=== PATIENT | female | born 1965 | race Caucasian/White ===

== ENCOUNTER 2020-02-17 16:47 | Inpatient (IN) | payer OTHER ==
--- NOTE | 2020-02-17 17:02 | PDOC ---
History of Present Illness - General Chief Complaint: Alcohol intoxication Stated Complaint: RT ARM INFECTION Time Seen by Provider: 02/17/20 16:58 History Source: Patient Exam Limitations: Language Barrier (malaysian speaking) - History of Present Illness Initial Comments: 02/17/20 17:01 HPI: This is a 54 y/o malaysian speaking female coming in from [facility] due to bilateral upper extremity cellulitis. She has a PMH of HIV, IVDA last use of heroin and cocaine was this morning. She reports that her arms have been swollen for the last 3 months. Switched from left arm to right arm as injection site. She is complaining of pain, swelling, and reports that she had purulent drainage from right arm. Denies any systemic symptoms. Denies fever/chills, chest pain, SOB, headache. ROS: GENERAL/CONSTITUTIONAL: No fever/chills. No weakness. CARDIOVASCULAR: No chest pain or shortness of breath. RESPIRATORY: No cough, wheezing, or hemoptysis. GASTROINTESTINAL: No nausea, vomiting, diarrhea or constipation. GENITOURINARY: No dysuria, frequency, or change in urination. MUSCULOSKELETAL: Bilateral forearm edema and pain SKIN: Bilateral forearm edema NEUROLOGIC: No headache, vertigo, loss of consciousness, or change in strength/sensation. ENDOCRINE: No increased thirst. No abnormal weight change. HEMATOLOGIC/LYMPHATIC: No anemia, easy bleeding, or history of blood clots. ALLERGIC/IMMUNOLOGIC: No hives or skin allergy. PMH: HIV, IVDA Social Hx: IVDA, cocaine use, heroin Meds: Denied Allergies: KNDA PE: GENERAL: Awake, alert. Visibly intoxicated. Falling asleep while talking. HEAD: No signs of trauma EYES: PERRLA, EOMI. Pupils constricted bilaterally. NECK: Normal ROM, supple. Track ness on right EJ LUNGS: Breath sounds equal, clear to auscultation bilaterally. HEART: Regular rate and rhythm. Systolic ejection murmur. ABDOMEN: Soft, nontender, normoactive bowel sounds. No guarding, no rebound. No masses EXTREMITIES: Bilateral forearm and hand edema R>L. Track ness on both arms and hands. Raised lesions. No drainage. NEUROLOGICAL: Cranial nerves II through XII grossly intact. Normal speech, normal gait SKIN: Warm, Dry, normal turgor, no rashes or lesions noted. MDM: 02/17/20 18:37 This is a 54 y/o malaysian speaking female coming in from [facility] due to bilateral upper extremity cellulitis. - Bilateral edema, warmth in upper forearms. R>L - Afebrile, no other systemic symptoms - Systolic murmur on exam. Patient unsure if it was present before. - Will admit for IV abx and echocardiogram due to new murmur and IVDA - Gave 1000mg IV Vanc in ED 02/17/20 19:10 - No leukocytosis - Pt refusing EKG - CXR clear -- Accepted by andres 02/17/20 21:50 Past History - Medical History Allergies/Adverse Reactions: Allergies Allergy/AdvReac Type Severity Reaction Status Date / Time No Known Allergies Allergy Verified 02/17/20 18:33 ED Treatment Course - LABORATORY CBC & Chemistry Diagram: 02/17/20 17:40 02/17/20 17:40 Discharge - Discharge Information Problems reviewed: Yes Clinical Impression/Diagnosis: Intravenous drug abuse Cellulitis Qualifiers: Site of cellulitis: extremity Site of cellulitis of extremity: upper extremity Laterality: right Qualified Code(s): L03.113 - Cellulitis of right upper limb Condition: Fair - Admission Yes - Follow up/Referral - Patient Discharge Instructions - Post Discharge Activity
--- NOTE | 2020-02-17 17:54 | PDOC ---
Documentation entered by Anitra Erickson SCRIBE, acting as scribe for Francisca Farfan DO. Francisca Farfan DO: This documentation has been prepared by the meghnae, Anitra Erickson SCRIBE, under my direction and personally reviewed by me in its entirety. I confirm that the documentation accurately reflects all work, treatment, procedures, and medical decision making performed by me. Attending Attestation - Resident Resident Name: Karen Braxton - ED Attending Attestation I have performed the following: I have examined & evaluated the patient, The case was reviewed & discussed with the resident, I agree w/resident's findings & plan, Exceptions are as noted - HPI HPI: 02/17/20 17:10 Patient is a 54 year old female with a significant past medical history of alcohol abuse, substance abuse (heroin and cocaine - last use was this morning), HIV, who presents to the ED, from [facility], with bilateral cellulitis in arms x3 months. Patient stated her arms have been swollen for months and that she switches between arm for drug injection sites. Patient endorses: swelling, pain, and purulent discharge from right arm. Patient denies: headache, fever, chills, SOB, chest pain, or any other related symptoms. Allergies: NKDA - Physicial Exam PE: 02/17/20 17:51 Gen: awake, speaking in serbian, nad heart: +s1s2 systolic ejection murmur lungs: cta b/l abd: soft, nt/nd +bs ext: track ness to b/l UE, mild warmth, no drainage, no fluctuance, sites where she skin pops, no drainage, no abscess, no crepitus - Medical Decision Making 02/17/20 17:52 a/p: 54yo female with murmur, unsure if new or old and UE cellulitis -bedside ultrasound shows cobblestoning, but no abscess -will need echo -hx of hiv -will send labs, iv abx -admission 02/17/20 19:23 no elevated wbc cxr clear microblog sent to [facility] for admission for iv abx and echo for murmur eval given ivda 02/17/20 20:00 resident discussed the case with [facility] who accepts the patient to service Discharge - Discharge Information Problems reviewed: Yes Clinical Impression/Diagnosis: Intravenous drug abuse Cellulitis Qualifiers: Site of cellulitis: extremity Site of cellulitis of extremity: upper extremity Laterality: right Qualified Code(s): L03.113 - Cellulitis of right upper limb Condition: Fair - Admission Yes - Follow up/Referral - Patient Discharge Instructions - Post Discharge Activity
[2020-02-17] MEDS ORDERED: LACTATED RINGERS SOLUTION 1000 ML INFUS.BAG IV ONE (18:31)
[2020-02-17] MEDS ORDERED: VANCOMYCIN 1 GM in D5W (PRE-DOCKED) 1,000 MG/250 ML IVPB ONE (18:32)
[2020-02-17] MEDS ORDERED: EPINEPHrine/PF 1 MG/1 ML (1:1,000) AMPULE ONE (18:35)
[2020-02-17] MEDS ORDERED: EPINEPHrine 1:10,000 (P-F SYR) 1 MG/10 ML DISP.SYRIN ONE (18:35)
[2020-02-17] MEDS ORDERED: VANCOMYCIN 1 GRAM (PRE-DOCKED) 1,000 MG/250 ML BAG IVPB ONE (18:36)
[2020-02-17 18:59] LABS: BASO % 0.5 % (0-2.0); EOS % 3.1 % (0-4.5); HEMOGLOBIN 10.5 GM/dL (10.7-15.3); LYMPH % 26.8 % (8-40); MCH 27.2 pg (25.7-33.7); MEAN CELL VOLUME 85.2 fl (80-96); MEAN PLT VOLUME 7.1 fl (7.5-11.1); MONO % 8.1 % (3.8-10.2); NEUT % 61.5 % (42.8-82.8); PLATELET COUNT 227 K/MM3 (134-434); RBC 3.87 M/mm3 (3.60-5.2); RDW 14.8 % (11.6-15.6); WHITE BLOOD COUNT 4.1 K/mm3 (4.0-10.0)
[2020-02-17 19:14] LABS: BILIRUBIN,TOTAL 0.2 mg/dL (0.2-1); BLOOD UREA NITROGEN 16.2 mg/dL (7-18); CALCIUM 8.5 mg/dL (8.5-10.1); CREATININE 0.8 mg/dL (0.55-1.3); POTASSIUM 4.3 mmol/L (3.5-5.1); TOT PROT 7.4 g/dl (6.4-8.2)
--- NOTE | 2020-02-17 19:30 | PN ---
Teaching Attending Note Name of Resident: Atif Gonzalez ATTENDING PHYSICIAN STATEMENT I saw and evaluated the patient. I reviewed the resident's note and discussed the case with the resident. I agree with the resident's findings and plan as documented. SUBJECTIVE: Patient is a 54 year old woman with a PMH of Alcohol abuse, Tobacco use, P rediabetes, HTN Asthma, Substance abuse (heroin and cocaine - last use was this morning), IVDA and HIV disease who presents to the ER from [facility] with bilateral cellulitis in the arms for 3 months. Patient stated her arms have been swollen for months and that she switches between arm for drug injection sites. Reports swelling, pain, and purulent discharge from right arm. Patient denies chest pain, shortness of breath, abdominal pain, headache, palpitations, dizziness, fever, chills, nausea, vomiting, diarrhea, constipation, dysuria, frequency, urgency, melena, hematochezia or hematuria. No sick contacts or recent travels. Family history of HTN and heart disease. OBJECTIVE: Somnolent but arousable Vital Signs Period Temp Pulse Resp BP Sys/Herring Pulse Ox Last 24 Hr 97.6 F 57 17 98/44 98 HEENT: No Jaundice, eye redness or discharge, PERRLA, EOMI. Normocephalic, atraumatic. External ears are normal and hearing is grossly intact. No nasal discharge. Neck: Supple, nontender. No palpable adenopathy or thyromegaly. No JVD Chest: Good effort. Clear to auscultation and percussion. Heart: Regular. No S3 or rub; 2/6 LIONEL. Abdomen: Not distended, soft, nontender and no HSM. No rebound or guarding. Normal bowel sounds. Ext: Peripheral pulses intact. No leg edema. Bilateral forearm edema with track ness, areas of hyperpigmentation and sequelae of IVDU; areas of induration and tenderness, but no fluctuance or crepitus. Skin: Warm and dry. No petechiae, rash or ecchymosis. Neuro: Somnolent but arousable; combative. Oriented x3. No tremors or asterexis. CN 2-12 grossly intact. Sensation grossly intact in all four extremities and DTR are symmetric. Psych: Appropriate mood and affect. Good insight. Abnormal Lab Results 02/17/20 02/17/20 17:40 17:40 Hgb 10.5 L MPV 7.1 L Anion Gap 7 L Albumin 3.0 L Current Medications Generic Name Dose Route Start Last Admin Trade Name Freq PRN Reason Stop Dose Admin Acetaminophen 650 mg 02/17/20 21:39 Tylenol - PO Q4H PRN PAIN LEVEL 6-10 Albuterol Sulfate 2 puff 02/17/20 20:44 Ventolin Hfa Inhaler - IH Q4H PRN SHORT OF BREATH/WHEEZING Enoxaparin Sodium 40 mg 02/18/20 10:00 Lovenox - SQ DAILY MILAGROS Vancomycin HCl 1,000 mg/ 250 mls @ 166.667 mls/hr 02/17/20 22:00 Dextrose IVPB Q12H MILAGROS Protocol Piperacillin Sod/Tazobactam 50 mls @ 100 mls/hr 02/17/20 22:00 Sod 3.375 gm/ Dextrose IVPB Q6H MILAGROS Protocol Vancomycin HCl 1,000 mg in 250 mls @ 166.667 mls/hr 02/18/20 06:00 Vancomycin (Pre-Docked) IVPB 02/18/20 07:29 ONCE ONE Protocol Piperacillin Sod/Tazobactam 50 mls @ 100 mls/hr 02/17/20 22:30 02/17/20 22:52 Sod 3.375 gm/ Dextrose IVPB 02/18/20 10:59 100 mls/hr Q6H MILAGROS Administration Protocol Folic Acid 1 mg/ Thiamine HCl 1,000 mls @ 125 mls/hr 02/17/20 22:32 100 mg/ Multivitamins/Minerals IVPB 02/18/20 06:31 10 ml/ Sodium Chloride ONCE ONE Insulin Aspart 1 vial 02/17/20 22:00 02/17/20 22:52 Novolog Vial Sliding Scale - SQ Not Given ACHS MILAGROS Protocol ASSESSMENT AND PLAN: 1. Upper extremity cellulitis/IVDU?Rule out endocarditis - CXR shows with no evidence of acute lung disease. Being treated with IV Vancomycin and Zosyn pending report of blood/pus culture. Will get CT scan of upper extremities to rule out abscess, get ECHO, urine toxicology, CD4 count, viral load and consult ID. Viral testing for COVID-19 ordered and patient placed on airborne, droplet and contact isolation. Patient refused EKG - wants to be fed before permitting anymore tests - we have requested for a sandwich for her. Urinalysis is pending. Will monitor blood glucose and do insulin sliding scale in view of history of prediabetes. Will continue comprehensive care for all of patients comorbid conditions including obtaining information about her HIV care/HAART from her PCP during the day and Albuterol PRN for COPD/Asthma. 2. Polysubstance abuse - Monitor closely for drug withdrawal. Implement [facility] alcohol withdrawal protocol and do neurochecks. Implement seizure, fall and aspiration precautions. Treat with IV Banana bag, thiamine and folic acid. Monitor and replete electrolytes (Ca,Mg,K,P). Counseled patient about abstaining from illicit drugs/alcohol. Will consult internet marketing specialist and refer to alcohol/drug detox upon discharge. 3. Hypoalbuminemia - Possibly due to combined effects of malnutrition and inflammation associated with comorbid conditions. Will ensure adequate dietary protein intake and also consult self propelled dredge operator. Urinalysis pending. 4. Hypertension Will restart suitable outpatient antihypertensive drugs when clinically appropriate. Subsequently, will revise regimen to ensure [id number] excellent BP control. Patient counseled on the injurious effects of uncontrolled hypertension. Nonpharmacologic measures to control hypertension like weight loss, salt restriction and exercise stressed. Importance of adherence to treatment regimen and attainment of normotension emphasized. 5. DVT prophylaxis - Lovenox 40 mg SQ q 24 hours. 6. Advance directives - Full code
[2020-02-17] MEDS ORDERED: ACETAMINOPHEN 325 MG TABLET (FP) PO PRN (21:39)
[2020-02-17] MEDS ORDERED: FOLIC ACID INJECTION - 1 MG, THIAMINE HCL 100 MG, MULTIVIT INJECTION ADULT 10 ML in SOD... IVPB ONE (22:32)
[2020-02-17] MEDS ORDERED: PIPERACILLIN/TAZOB 3.375 GM 3.375 GM/50 ML BAG IVPB ONE (22:41)
[2020-02-17] MEDS: INSULIN SLIDING SCALE (NOVOLOG) 1 VIAL SQ SCH (22:52)
[2020-02-17] MEDS: PIPERACILLIN/TAZOB 3.375 GM 3.375 GM in DEXTROSE 5%-WATER - 50 ML IVPB SCH (22:52)
--- NOTE | 2020-02-18 01:08 | HP ---
CHIEF COMPLAINT: Feeling of unwellness x 3 months PCP:None HISTORY OF PRESENT ILLNESS: Patient is a 54yo female with a PMHx Emphysema, Diabetes mellitus, HIV, HTN now complaining of feeling of unwellness of 3months duration. When asked she stretched out her forearm to exposed b/l forearm swelling. She said it has been progressing with pain scale of 5/10, relieved by a bag of heroin. Denies chest pain, hx of cloting disorder, persistent/recurrent headache, visual or auditory impairment. However there is associated somnolence, yawning, anxiety and agitated but no nausea, vomitting and diarrhea. ER course was notable for: (1)Vancomysin (2)Zosyn (3)IVF: LR Recent Travel:None PAST SURGICAL HISTORY: many years back Social History: Lives alone in the [place]. [email or web address] [employer] [facility] and on full disability Drugs: Cocaine and heroin. Uses up to 10 bags of heroin. Uses in isolated, not in company of friends and does not share needle. Never OD, has narca at home Allergies: No known allergy OBGYN Hx: Not currently sexually active. Para 4. No hx of STI FHx: Heart disease and HTN in parents HOME MEDICATIONS: REVIEW OF SYSTEMS Negative except as above Vital Signs - 24 hr 02/17/20 02/17/20 02/18/20 16:50 21:53 00:46 Temperature 97.6 F Pulse Rate 57 L Pulse Rate [ 61 Right Radial] Respiratory 17 Rate Blood Pressure 98/44 L Blood Pressure 103/64 [Left Arm] O2 Sat by Pulse 98 95 96 Oximetry (%) 02/18/20 01:05 Temperature Pulse Rate Pulse Rate [ Right Radial] Respiratory 17 Rate Blood Pressure Blood Pressure [Left Arm] O2 Sat by Pulse 96 Oximetry (%) PHYSICAL EXAMINATION GENERAL: Awake, somnolence, yawning,anxious and agitated HEAD: Normal with no signs of trauma. EYES: Sclera anicteric, conjunctiva clear. NECK: Normal range of motion, supple without lymphadenopathy, masses. LUNGS: Vesicular breath sounds equal and b/l. No wheezes, and no crackles. No obvious signs of respiratory distress. HEART: S1 and S2 appreciated. Murmur present over tricuspid valvular region. ABDOMEN: Soft, full. Deep palpation deferred, patient became more agitated at this point. UPPER EXTREMITIES: B/L swelling of forearm noticed, hyperpigmented with obvious track ness. Palpation revealed no crepitus, non fluctuant, tenderness rated 5/10. LOWER EXTREMITIES: No pedal edema. NEUROLOGICAL: Somnolence, anxious and agitated. Cranial VII and V-motor intact. Patient non cooperative for the rest of the CN exam PSYCHIATRIC: poor eye contact. SKIN: swelling and tenderness of b/l forearm Laboratory Results - last 24 hr 02/17/20 02/17/20 02/17/20 17:40 17:40 22:50 WBC 4.1 RBC 3.87 Hgb 10.5 L Hct 33.0 MCV 85.2 MCH 27.2 MCHC 32.0 RDW 14.8 Plt Count 227 MPV 7.1 L Absolute Neuts (auto) 2.5 Neutrophils % 61.5 Lymphocytes % 26.8 Monocytes % 8.1 Eosinophils % 3.1 Basophils % 0.5 Nucleated RBC % 0 Sodium 139 Potassium 4.3 Chloride 102 Carbon Dioxide 29 Anion Gap 7 L BUN 16.2 Creatinine 0.8 Est GFR (CKD-EPI)AfAm 96.87 Est GFR (CKD-EPI)NonAf 83.58 POC Glucometer 82 Random Glucose 93 Calcium 8.5 Total Bilirubin 0.2 AST 20 ALT 19 Alkaline Phosphatase 77 Total Protein 7.4 Albumin 3.0 L HIV-1 Antibody HIV Ag/Ab Interpret HIV-2 Antibody HIV 1&2 Ag/Ab, 4th Gen HIV 1&2 Ab Final Interp 02/17/20 22:56 WBC RBC Hgb Hct MCV MCH MCHC RDW Plt Count MPV Absolute Neuts (auto) Neutrophils % Lymphocytes % Monocytes % Eosinophils % Basophils % Nucleated RBC % Sodium Potassium Chloride Carbon Dioxide Anion Gap BUN Creatinine Est GFR (CKD-EPI)AfAm Est GFR (CKD-EPI)NonAf POC Glucometer Random Glucose Calcium Total Bilirubin AST ALT Alkaline Phosphatase Total Protein Albumin HIV-1 Antibody Cancelled HIV Ag/Ab Interpret Cancelled HIV-2 Antibody Cancelled HIV 1&2 Ag/Ab, 4th Gen Cancelled HIV 1&2 Ab Final Interp Cancelled ASSESSMENT/PLAN: Patient is a 54yo female with a PMHx Emphysema, Diabetes mellitus HTN now complaining of feeling of unwellness and b/l forearm swelling of 3months. # BILATERAL FOREARM CELLULITIS: Painful swollen b/l forearm Intravenous drug user with needle tracks Known HIV patient Blood and pus culture pending Tylenol 650mg prn Continue IV Vancomycin and Zosyn. Adjust as necessary based on culture results CT scan of upper extremities to rule out abscess #R/O INFECTIVE ENDOCARDITIS: Painful swollen b/l forearm Intravenous drug user with tracks Immunosuppressed considering HIV status Tricuspid valvular murmur on P/E LOGAN for intracardiac and valvular analysis 2 sample blood culture Continue Vancomysin and Zosyn as stated #HIV: Known HIV patient Anemia Hypoalbuminemia CD4 count and viral load Information on HIV and HAART to be obtained in AM from PCP for optimal treatment Consult ID. Viral testing for COVID-19 ordered Pending covid result, patient to be placed on airborne, droplet and contact isolation. Folic acid 1mg IV #POLY SUBSTANCE ABUSE/DEPENDENCE, COMPLICATED: Cocaine and heroin dependence B/L upper limb cellutis ?New onset tricuspid murmur Urine toxicology Monitot and Rx withdrawal symptoms Albuterol PRN for COPD/Asthma Educate patient on importance of stopping illicit drug use and complication of continue use # ?PREDIABETES: BGM and ISS initiation if clinically required HbA1c and manage appropriately F/U Urinalysis result #FEN: Continue IVF until LOGAN is done Continue to monitor electrolyte and replete prn NPO before LOGAN, then low carbs, low fat, low salt diet #DVT prophylax: Levonox 4omg tid #DISPOSITION: Admit to med surg F/u pending results Call local pharm and PCP for prescribed HAART regimen pt is on Visit type - Emergency Visit Emergency Visit: Yes ED Registration Date: 02/17/20 Care time: The patient presented to the Emergency Department on the above date and was hospitalized for further evaluation of their emergent condition. - New Patient This patient is new to me today: Yes Date on this admission: 02/17/20 - Critical Care Critical Care patient: No ATTENDING PHYSICIAN STATEMENT I saw and evaluated the patient. I reviewed the resident's note and discussed the case with the resident. I agree with the resident's findings and plan as documented. SUBJECTIVE: OBJECTIVE: ASSESSMENT AND PLAN:
[2020-02-18 01:14] VITALS: BMI 26.2
[2020-02-18] MEDS ORDERED: PIPERACILLIN/TAZOBACTAM 3.375 GM VIAL IVPB ONE ×3 (04:27→16:43)
[2020-02-18] MEDS ORDERED: DEXTROSE 5%-WATER - 50 ML IVPB ONE ×3 (04:28→16:43)
[2020-02-18] MEDS: PIPERACILLIN/TAZOB 3.375 GM 3.375 GM in DEXTROSE 5%-WATER - 50 ML IVPB SCH ×5 (04:34→17:13)
[2020-02-18] MEDS ORDERED: VANCOMYCIN 1 GRAM (PRE-DOCKED) 1,000 MG/250 ML BAG IVPB ONE (06:00)
[2020-02-18] MEDS: INSULIN SLIDING SCALE (NOVOLOG) 1 VIAL SQ SCH ×4 (06:57→21:20)
[2020-02-18 08:06] LABS: BASO % 0.6 % (0-2.0); EOS % 2.4 % (0-4.5); HEMATOCRIT 35.1 % (32.4-45.2); HEMOGLOBIN 11.1 GM/dL (10.7-15.3); LYMPH % 24.2 % (8-40); MCH 26.9 pg (25.7-33.7); MCHC 31.8 g/dl (32.0-36.0); MEAN CELL VOLUME 84.5 fl (80-96); MEAN PLT VOLUME 7.3 fl (7.5-11.1); MONO % 7.7 % (3.8-10.2); NEUT % 65.1 % (42.8-82.8); PLATELET COUNT 213 K/MM3 (134-434); RBC 4.15 M/mm3 (3.60-5.2); RDW 14.5 % (11.6-15.6); WHITE BLOOD COUNT 4.3 K/mm3 (4.0-10.0)
--- NOTE | 2020-02-18 08:32 | PN ---
Teaching Attending Note Name of Resident: Shaun Bautista ATTENDING PHYSICIAN STATEMENT I saw and evaluated the patient. I reviewed the resident's note and discussed the case with the resident. I agree with the resident's findings and plan as documented. SUBJECTIVE: This patient is a 54yof with a Pmhx of polysubstance abuse( alcohol abuse, heroi n and cocaine; last use was this morning), HIV, who presents to the ED, from [facility], with bilateral cellulitis in arms for x3 months with worsening symptoms. Patient stated her arms have been swollen for months and that she switches between arm for drug injection sites. OBJECTIVE: Vital Signs Temperature 98.3 F 02/18/20 06:00 Pulse Rate 59 L 02/18/20 06:00 Respiratory Rate 20 02/18/20 06:00 Blood Pressure 105/57 L 02/18/20 06:00 O2 Sat by Pulse Oximetry (%) 95 02/18/20 06:00 PE: per resident's note CBCD WBC 4.1 K/mm3 (4.0-10.0) 02/17/20 17:40 RBC 3.87 M/mm3 (3.60-5.2) 02/17/20 17:40 Hgb 10.5 GM/dL (10.7-15.3) L 02/17/20 17:40 Hct 33.0 % (32.4-45.2) 02/17/20 17:40 MCV 85.2 fl (80-96) 02/17/20 17:40 MCHC 32.0 g/dl (32.0-36.0) 02/17/20 17:40 RDW 14.8 % (11.6-15.6) 02/17/20 17:40 Plt Count 227 K/MM3 (134-434) 02/17/20 17:40 MPV 7.1 fl (7.5-11.1) L 02/17/20 17:40 CMP Sodium 139 mmol/L (136-145) 02/17/20 17:40 Potassium 4.3 mmol/L (3.5-5.1) 02/17/20 17:40 Chloride 102 mmol/L (98-107) 02/17/20 17:40 Carbon Dioxide 29 mmol/L (21-32) 02/17/20 17:40 Anion Gap 7 MMOL/L (8-16) L 02/17/20 17:40 BUN 16.2 mg/dL (7-18) 02/17/20 17:40 Creatinine 0.8 mg/dL (0.55-1.3) 02/17/20 17:40 Random Glucose 93 mg/dL (74-106) 02/17/20 17:40 Calcium 8.5 mg/dL (8.5-10.1) 02/17/20 17:40 Total Bilirubin 0.2 mg/dL (0.2-1) 02/17/20 17:40 AST 20 U/L (15-37) 02/17/20 17:40 ALT 19 U/L (13-61) 02/17/20 17:40 Alkaline Phosphatase 77 U/L (45-117) 02/17/20 17:40 Total Protein 7.4 g/dl (6.4-8.2) 02/17/20 17:40 Albumin 3.0 g/dl (3.4-5.0) L 02/17/20 17:40 Current Medications Generic Name Dose Route Start Last Admin Trade Name Freq PRN Reason Stop Dose Admin Acetaminophen 650 mg 02/17/20 21:39 Tylenol - PO Q4H PRN PAIN LEVEL 6-10 Albuterol Sulfate 2 puff 02/17/20 20:44 Ventolin Hfa Inhaler - IH Q4H PRN SHORT OF BREATH/WHEEZING Enoxaparin Sodium 40 mg 02/18/20 10:00 Lovenox - SQ DAILY MILAGROS Vancomycin HCl 1,000 mg/ 250 mls @ 166.667 mls/hr 02/17/20 22:00 Dextrose IVPB Q12H MILAGROS Protocol Piperacillin Sod/Tazobactam 50 mls @ 100 mls/hr 02/17/20 22:00 Sod 3.375 gm/ Dextrose IVPB Q6H MILAGROS Protocol Piperacillin Sod/Tazobactam 50 mls @ 100 mls/hr 02/17/20 22:30 02/18/20 04:34 Sod 3.375 gm/ Dextrose IVPB 02/18/20 10:59 100 mls/hr Q6H MILAGROS Administration Protocol Insulin Aspart 1 vial 02/17/20 22:00 02/18/20 06:57 Novolog Vial Sliding Scale - SQ Not Given ACHS MILAGROS Protocol CT of upper extremity without contrast: Subcutaneous edema and emphysema suspecious for cellulitis(pronounced within the right forearm), no evidence of abscess. old Chip fracture about distal left humerus ASSESSMENT AND PLAN: This patient is a 54yof with a PMHx Emphysema, T2Dm, HIV, HTN, admitted for having bl upper extremity cellulitis/IVDA (heroin/Crack)admits for injecting herself. # Acute over chronic Upper extremity cellulitis/IVDA: On IV zosyn/vanco, ID consulted, ordered echo to r/o endocarditis #Polysubstance abuse: discussed abstinence # Hypertension: SBP is 105, not on any meds DVT prophylaxis - Lovenox 40 mg SQ
[2020-02-18 08:41] LABS: ALBUMIN 2.6 g/dl (3.4-5.0); BLOOD UREA NITROGEN 16.1 mg/dL (7-18); POTASSIUM 4.7 mmol/L (3.5-5.1)
[2020-02-18 08:47] LABS: BILIRUBIN,TOTAL 0.3 mg/dL (0.2-1); CALCIUM 8.4 mg/dL (8.5-10.1); CREATININE 0.7 mg/dL (0.55-1.3); MAGNESIUM 2.2 mg/dL (1.8-2.4); PHOSPHOROUS 3.1 mg/dL (2.5-4.9); TOT PROT 6.8 g/dl (6.4-8.2)
[2020-02-18 09:16] LABS: EPI CELLS 8 /uL (0-25.1); HYALINE CASTS 1 /uL (0-3.1); PH,URINE 6.5 (5.0-8.0); URINE APPEARANCE CLEAR; URINE BACTERIA 397 /uL (0-1359); URINE BILIRUBIN NEGATIVE (NEGATIVE); URINE COLOR YELLOW; URINE GLUCOSE (UA) NEGATIVE (NEGATIVE); URINE KETONE NEGATIVE (NEGATIVE); URINE LEUK ESTERASE 2+ (NEGATIVE); URINE NITRITE NEGATIVE (NEGATIVE); URINE PROTEIN NEGATIVE (NEGATIVE); URINE RBC 6 /uL (0-23.9); URINE UROBILINOGEN 0.2 mg/dL (0.2-1.0); URINE WBC 222 /uL (0-25.8)
--- NOTE | 2020-02-18 09:39 | CON.ID ---
Consult Consult Specialty:: infectious diseases Referred by:: hospitalist Reason for Consultation:: b/l swelling of the arms and cellulitis - History of Present Illness Chief Complaint: swelling of the arms History of Present Illness: 54 year old female with a significant past medical history of alcohol abuse, substance abuse (heroin and cocaine - last use was this morning), HIV, who presents to the ED, from [facility], with bilateral cellulitis in arms x3 months. Patient stated her arms have been swollen for months and that she switches between arm for drug injection sites. she mentions that she thinks her infection is inside her body than outside she changes her arms and uses them both for drug use - History Source History Provided By: Patient, Medical Record Limitations to Obtaining History: Language Barrier - Past Medical History ...LMP: 02/10/20 ...: No - Smoking History Smoking history: Current every day smoker Have you smoked in the past 12 months: Yes Aproximately how many cigarettes per day: 12 Home Medications - Allergies Allergies/Adverse Reactions: Allergies Allergy/AdvReac Type Severity Reaction Status Date / Time No Known Allergies Allergy Verified 02/17/20 18:33 Review of Systems - Review of Systems Constitutional: reports: Weakness Eyes: reports: No Symptoms HENT: reports: No Symptoms Neck: reports: No Symptoms Cardiovascular: reports: No Symptoms Respiratory: reports: No Symptoms Gastrointestinal: reports: No Symptoms Genitourinary: reports: No Symptoms Musculoskeletal: reports: Other Integumentary: reports: Other Neurological: reports: No Symptoms Endocrine: reports: No Symptoms Hematology/Lymphatic: reports: No Symptoms Psychiatric: reports: No Symptoms Physical Exam Vital Signs: Vital Signs Temperature 98.3 F 02/18/20 06:00 Pulse Rate 59 L 02/18/20 06:00 Respiratory Rate 20 02/18/20 06:00 Blood Pressure 105/57 L 02/18/20 06:00 O2 Sat by Pulse Oximetry (%) 95 02/18/20 06:00 Constitutional: Yes: No Distress, Calm Cardiovascular: Yes: S1, S2, Other (systolic murmur) Musculoskeletal: Yes: WNL Extremities: Yes: Erythema (on both upper ext), Other Neurological: Yes: Alert, Oriented Psychiatric: Yes: Alert, Oriented Labs: CBC, BMP 02/18/20 06:45 02/18/20 06:45 Imaging - Results Chest X-ray: Report Reviewed, Image Reviewed Cat Scan: Report Reviewed, Image Reviewed Assessment/Plan patient with multiple medical issues,coming in with cellulitis of the arms rt is slightly worse this is due to her injecting 1 await for blood cx 2 pls get an echo 3 monitor for fevers 4 we will continue abx 5.can restart her on all her hiv meds rest as per the team
[2020-02-18] MEDS ORDERED: METHADONE HCL 10 MG TABLET (FOR DETOX USE ONLY) PO ONE (10:06)
[2020-02-18] MEDS ORDERED: METHADONE HCL 40 MG DISPERSABLE TABLET PO SCH (10:45)
[2020-02-18] MEDS: ENOXAPARIN NA (PORCINE) 40 MG/0.4 ML DISP.SYRIN SQ SCH (10:52)
--- NOTE | 2020-02-18 11:50 | CON.CARD ---
Consult Consult Specialty:: Cardiology Referred by:: Vasu Reason for Consultation:: systolic murmur - History of Present Illness Chief Complaint: Arm swelling History of Present Illness: 54 year old female with a pmhx of emphysema, dm, hiv, htn, etoh and heroine/cocaine use admitted with b/l forearm swelling. Cellulitis on ct scan. No chest pain, sob, or palpitations. No pnd, orthopnea, or edema. No syncope. - History Source History Provided By: Patient, Medical Record - Past Medical History Cardio/Vascular: Yes: HTN Pulmonary: Yes: COPD ...LMP: 02/10/20 ...: No Infectious Disease: Yes: HIV - Smoking History Smoking history: Current every day smoker Have you smoked in the past 12 months: Yes Aproximately how many cigarettes per day: 12 Home Medications - Allergies Allergies/Adverse Reactions: Allergies Allergy/AdvReac Type Severity Reaction Status Date / Time No Known Allergies Allergy Verified 02/17/20 18:33 Vital Signs: Vital Signs Temperature 98.3 F 02/18/20 06:00 Pulse Rate 59 L 02/18/20 06:00 Respiratory Rate 20 02/18/20 06:00 Blood Pressure 105/57 L 02/18/20 06:00 O2 Sat by Pulse Oximetry (%) 95 02/18/20 06:00 Constitutional: Yes: No Distress Neck: Yes: Supple Respiratory: Yes: CTA Bilaterally Gastrointestinal: Yes: Soft Cardiovascular: Yes: Regular Rate and Rhythm JVD: No Carotid Bruit: No PMI: Non-Displaced Heart Sounds: Yes: S1, S2 Murmur: Yes: Systolic Murmur (+3/6 HSM LLSB) Extremities: Yes: Other (+b/l forearm swelling) Edema: No - Other Data Labs, Other Data: CBC, BMP 02/18/20 06:45 02/18/20 06:45 Imaging - Results Chest X-ray: Report Reviewed Problem List - Problems (1) Cellulitis Code(s): L03.90 - CELLULITIS, UNSPECIFIED Qualifiers: Site of cellulitis: extremity Site of cellulitis of extremity: upper extremity Laterality: right Qualified Code(s): L03.113 - Cellulitis of right upper limb Assessment/Plan 54 year old female with a pmhx of emphysema, dm, hiv, htn, etoh and heroine/cocaine use admitted with b/l forearm swelling. Cellulitis on ct scan. No chest pain, sob, or palpitations. No pnd, orthopnea, or edema. No syncope. 1) Cardiac Systolic murmur in tricuspid area. No fever +cellulitis Active IVDU At risk for tricuspid endocarditis. Abx as per primary team Bld Cx's Plan for echocardiogram EKG
[2020-02-18] MEDS: VANCOMYCIN 1,000 MG in DEXTROSE 5%-WATER - 250 ML IVPB SCH (12:02)
[2020-02-18] MEDS ORDERED: ELVITEG/COB/EMTRI/TENOF (GENVOYA) TABLET (NF) PO SCH (13:00)
--- NOTE | 2020-02-18 14:46 | EKG ---
Test Reason : Blood Pressure : / mmHG Vent. Rate : 062 BPM Atrial Rate : 062 BPM P-R Int : 154 ms QRS Dur : 082 ms QT Int : 432 ms P-R-T Axes : 078 074 075 degrees QTc Int : 438 ms NORMAL SINUS RHYTHM NORMAL ECG NO PREVIOUS ECGS AVAILABLE Confirmed by DAVID AGUAYO MD ([id number]) on 02/18/2020 2:45:54 PM Referred By: Confirmed By:DAVID AGUAYO MD
--- NOTE | 2020-02-18 17:04 | PN ---
Physical Exam: SUBJECTIVE: Patient seen and examined at bedside. The patient reports that she feels shortness of breath, which has been for a year; stool incontinence, which has been for 2 months; and sharp occasional chest pain with tightness, which has been for 3 months. She denies fever/chills, palpitations, nausea, and bowel/bladder problems. She reports being compliant on her medications. A call to her pharmacy revealed that she last picked up her medications on 02/07 and 02/09. She reports having multiple needles for her IV drug use. She uses both arms for her IV drug use. OBJECTIVE: Vital Signs Period Temp Pulse Resp BP Sys/Herring Pulse Ox Last 24 Hr 97.6 F-98.8 F 58-77 17-20 103-117/53-64 95-97 GENERAL: The patient is awake, alert, and fully oriented, in no acute distress. HEAD: Normal with no signs of trauma. EYES: Extraocular movements intact. No ptosis. ENT: Ears normal, nares patent, oropharynx clear without exudates, moist mucous membranes. NECK: Trachea midline, full range of motion, supple. LUNGS: Breath sounds equal, clear to auscultation bilaterally, no wheezes, no crackles, no accessory muscle use. HEART: Regular rate and rhythm, S1, S2. Soft systolic murmur that stops alf between S1 and S2, heard best at left sternal border. ABDOMEN: Soft, nontender, nondistended, normoactive bowel sounds, no guarding, no rebound, no masses. EXTREMITIES: 2+ pulses, warm, well-perfused, no edema. NEUROLOGICAL: Normal speech, gait not observed. PSYCH: Normal mood, normal affect. SKIN: Warm, dry, normal turgor. Swelling and hyperpigmentation on arms bilaterally nontender to touch. Track ness bilaterally on arms. Laboratory Results - last 24 hr 02/17/20 02/17/20 02/17/20 17:40 17:40 19:10 WBC 4.1 RBC 3.87 Hgb 10.5 L Hct 33.0 MCV 85.2 MCH 27.2 MCHC 32.0 RDW 14.8 Plt Count 227 MPV 7.1 L Absolute Neuts (auto) 2.5 Neutrophils % 61.5 Lymphocytes % 26.8 Monocytes % 8.1 Eosinophils % 3.1 Basophils % 0.5 Nucleated RBC % 0 Sodium 139 Potassium 4.3 Chloride 102 Carbon Dioxide 29 Anion Gap 7 L BUN 16.2 Creatinine 0.8 Est GFR (CKD-EPI)AfAm 96.87 Est GFR (CKD-EPI)NonAf 83.58 POC Glucometer Random Glucose 93 Hemoglobin A1c % Calcium 8.5 Phosphorus Magnesium Total Bilirubin 0.2 AST 20 ALT 19 Alkaline Phosphatase 77 Total Protein 7.4 Albumin 3.0 L Urine Color Urine Appearance Urine pH Ur Specific [place] Urine Protein Urine Glucose (UA) Urine Ketones Urine Blood Urine Nitrite Urine Bilirubin Urine Urobilinogen Ur Leukocyte Esterase Urine WBC (Auto) Urine RBC (Auto) Urine Casts (Auto) U Epithel Cells (Auto) Urine Bacteria (Auto) COVID-19 ([facility]) Not detected HIV Ag/Ab Combo Qual HIV-1 Antibody HIV Ag/Ab Interpret HIV-2 Antibody HIV 1&2 Ag/Ab, 4th Gen HIV 1&2 Ab Final Interp 02/17/20 02/17/20 02/17/20 22:50 22:56 23:00 WBC RBC Hgb Hct MCV MCH MCHC RDW Plt Count MPV Absolute Neuts (auto) Neutrophils % Lymphocytes % Monocytes % Eosinophils % Basophils % Nucleated RBC % Sodium Potassium Chloride Carbon Dioxide Anion Gap BUN Creatinine Est GFR (CKD-EPI)AfAm Est GFR (CKD-EPI)NonAf POC Glucometer 82 Random Glucose Hemoglobin A1c % Calcium Phosphorus Magnesium Total Bilirubin AST ALT Alkaline Phosphatase Total Protein Albumin Urine Color Urine Appearance Urine pH Ur Specific [place] Urine Protein Urine Glucose (UA) Urine Ketones Urine Blood Urine Nitrite Urine Bilirubin Urine Urobilinogen Ur Leukocyte Esterase Urine WBC (Auto) Urine RBC (Auto) Urine Casts (Auto) U Epithel Cells (Auto) Urine Bacteria (Auto) COVID-19 ([facility]) HIV Ag/Ab Combo Qual Presumptive positive A* HIV-1 Antibody Cancelled HIV Ag/Ab Interpret Cancelled HIV-2 Antibody Cancelled HIV 1&2 Ag/Ab, 4th Gen Cancelled HIV 1&2 Ab Final Interp Cancelled 02/18/20 02/18/20 02/18/20 05:40 06:45 06:45 WBC 4.3 RBC 4.15 Hgb 11.1 Hct 35.1 MCV 84.5 MCH 26.9 MCHC 31.8 L RDW 14.5 Plt Count 213 MPV 7.3 L Absolute Neuts (auto) 2.8 Neutrophils % 65.1 Lymphocytes % 24.2 Monocytes % 7.7 Eosinophils % 2.4 Basophils % 0.6 Nucleated RBC % 0 Sodium 137 Potassium 4.7 Chloride 104 Carbon Dioxide 30 Anion Gap 4 L BUN 16.1 Creatinine 0.7 Est GFR (CKD-EPI)AfAm 113.84 Est GFR (CKD-EPI)NonAf 98.23 POC Glucometer Random Glucose 75 Hemoglobin A1c % Calcium 8.4 L Phosphorus 3.1 Magnesium 2.2 Total Bilirubin 0.3 AST 20 ALT 16 Alkaline Phosphatase 69 Total Protein 6.8 Albumin 2.6 L Urine Color Yellow Urine Appearance Clear Urine pH 6.5 Ur Specific [place] 1.011 Urine Protein Negative Urine Glucose (UA) Negative Urine Ketones Negative Urine Blood Negative Urine Nitrite Negative Urine Bilirubin Negative Urine Urobilinogen 0.2 Ur Leukocyte Esterase 2+ H Urine WBC (Auto) 222 Urine RBC (Auto) 6 Urine Casts (Auto) 1 U Epithel Cells (Auto) 8 Urine Bacteria (Auto) 397 COVID-19 ([facility]) HIV Ag/Ab Combo Qual HIV-1 Antibody HIV Ag/Ab Interpret HIV-2 Antibody HIV 1&2 Ag/Ab, 4th Gen HIV 1&2 Ab Final Interp 02/18/20 02/18/20 06:45 11:08 WBC RBC Hgb Hct MCV MCH MCHC RDW Plt Count MPV Absolute Neuts (auto) Neutrophils % Lymphocytes % Monocytes % Eosinophils % Basophils % Nucleated RBC % Sodium Potassium Chloride Carbon Dioxide Anion Gap BUN Creatinine Est GFR (CKD-EPI)AfAm Est GFR (CKD-EPI)NonAf POC Glucometer 81 Random Glucose Hemoglobin A1c % 5.9 Calcium Phosphorus Magnesium Total Bilirubin AST ALT Alkaline Phosphatase Total Protein Albumin Urine Color Urine Appearance Urine pH Ur Specific [place] Urine Protein Urine Glucose (UA) Urine Ketones Urine Blood Urine Nitrite Urine Bilirubin Urine Urobilinogen Ur Leukocyte Esterase Urine WBC (Auto) Urine RBC (Auto) Urine Casts (Auto) U Epithel Cells (Auto) Urine Bacteria (Auto) COVID-19 ([facility]) HIV Ag/Ab Combo Qual HIV-1 Antibody HIV Ag/Ab Interpret HIV-2 Antibody HIV 1&2 Ag/Ab, 4th Gen HIV 1&2 Ab Final Interp Active Medications Generic Name Dose Route Start Last Admin Trade Name Freq PRN Reason Stop Dose Admin Acetaminophen 650 mg 02/17/20 21:39 Tylenol - PO Q4H PRN PAIN LEVEL 6-10 Albuterol Sulfate 2 puff 02/17/20 20:44 Ventolin Hfa Inhaler - IH Q4H PRN SHORT OF BREATH/WHEEZING Elvitegravir/Cobicis/Emtricit/Tenof 1 tab 02/19/20 10:00 Genvoya (Non-Formulary) PO DAILY [facility] Enoxaparin Sodium 40 mg 02/18/20 10:00 02/18/20 10:52 Lovenox - SQ 40 mg DAILY [facility] Administration Ferrous Sulfate 325 mg 02/19/20 10:00 Feosol - PO DAILY [facility] Piperacillin Sod/Tazobactam 50 mls @ 100 mls/hr 02/18/20 18:00 Sod 3.375 gm/ Dextrose IVPB Q8H-IV [facility] Protocol Vancomycin HCl 1,250 mg/ 250 mls @ 250 mls/2 hr 02/19/20 06:00 Dextrose IVPB Q24H [facility] Protocol Insulin Aspart 1 vial 02/17/20 22:00 02/18/20 11:10 Novolog Vial Sliding Scale - SQ Not Given ACHS [facility] Protocol Methadone HCl 120 mg 02/18/20 10:45 02/18/20 10:52 Dolophine - PO 120 mg DAILY [facility] Administration Multivitamins/Minerals/Vitamin C 1 tab 02/19/20 10:00 Tab-A-Vit - PO DAILY [facility] ASSESSMENT/PLAN: 54 year old female patient with past medical history that includes HIV on Genvoya, IVDA of heroine and cocaine on methadone, and , who presented to the ED with bilateral upper extremity swelling. 1. Endocarditis - Systolic murmur - ECHO - Vancomycin and Zosyn 1. Upper extremity cellulitis - Subcutaneous edema and emphysema suspicious for cellulitis on CT scan - Swelling and hyperpigmentation on arms bilaterally - Vancomycin and Zosyn 2. HIV - Genvoya # FEN - Monitoring Electrolytes, Regular Diet DVT PPx - Lovenox Visit type - Emergency Visit Emergency Visit: Yes ED Registration Date: 02/17/20 Care time: The patient presented to the Emergency Department on the above date and was hospitalized for further evaluation of their emergent condition. - New Patient This patient is new to me today: Yes Date on this admission: 02/18/20 - Critical Care Critical Care patient: No - Discharge Referral Referred to [facility] Med P.C.: No ATTENDING PHYSICIAN STATEMENT I saw and evaluated the patient. I reviewed the resident's note and discussed the case with the resident. I agree with the resident's findings and plan as documented. SUBJECTIVE: OBJECTIVE: ASSESSMENT AND PLAN:
--- NOTE | 2020-02-18 17:40 | ECHO ---
Name: ALLIE CEJA Exam:Adult Echocardiogram Study Date: 02/18/2020 02:02 PM Age: 54 yrs Reason For Study: R/O Endocarditis Height: 64 in Weight: 152 lb BSA: 1.7 m2 MMode/2D Measurements & Calculations IVSd: 0.87 cm Ao root diam: 2.6 cm LVIDd: 5.3 cm LA dimension: 2.9 cm LVIDs: 3.2 cm ACS: 1.8 cm LVPWd: 0.80 cm EDV(Teich): 137.1 ml LVOT diam: 2.0 cm ESV(Teich): 39.9 ml LAV (MOD-bp): 56.0 ml TAPSE: 2.9 cm RV S Nick: 11.6 cm/sec Doppler Measurements & Calculations MV E max nick: 76.5 cm/sec Ao V2 max: 133.0 cm/sec MV A max nick: 64.2 cm/sec Ao max P.1 mmHg MV E/A: 1.2 Ao V2 mean: 89.6 cm/sec MV dec time: 0.32 sec Ao mean P.7 mmHg Ao V2 VTI: 25.6 cm YONATAN(I,D): 3.2 cm2 YONATAN(V,D): 3.1 cm2 LV V1 max P.5 mmHg SV(LVOT): 82.6 ml LV V1 mean P.2 mmHg LV V1 max: 127.3 cm/sec LV V1 mean: 82.9 cm/sec LV V1 VTI: 25.4 cm PA V2 max: 95.0 cm/sec Med Peak E' Nick: 7.3 cm/sec PA max P.6 mmHg Med E/e': 10.5 PA acc slope: 653.0 cm/sec2 Lat Peak E' Nick: 10.1 cm/sec PA acc time: 0.14 sec Lat E/e': 7.5 PA pr(Accel): 14.0 mmHg Pulm Sys Nick: 50.8 cm/sec Pulm Herring Nick: 60.2 cm/sec Pulm S/D: 0.84 Tech Comments TDS. Patient restless. Unable to lay still. Procedure A complete two-dimensional transthoracic echocardiogram was performed (2D, M-mode, Doppler and color flow Doppler). Left Ventricle The left ventricular size, thickness and function are normal. Ejection Fraction = 60-65%. The left ve ntricular wall motion is normal. Right Ventricle The right ventricle is normal in size and function. Atria Normal left and right atrial size and function. Mitral Valve There is no mitral regurgitation noted. Tricuspid Valve There is trace tricuspid regurgitation. There was insufficient TR detected to calculate RV systolic p ressure. Aortic Valve No hemodynamically significant valvular aortic stenosis. No aortic regurgitation is present. Pulmonic Valve There is no pulmonic valvular regurgitation. Great Vessels The aortic root is normal size. Pericardium/Pleura There is no pericardial effusion. Interpretation Summary The left ventricular size, thickness and function are normal The right ventricle is normal in size and function. There is trace tricuspid regurgitation. MD Sheldon Rivero 02/18/2020 05:39 PM
[2020-02-18] MEDS ORDERED: PT OWN MED DRAWER 7, Y5N ONE ×2 (22:29→22:39)
[2020-02-18] MEDS: ALBUTEROL SO4 HFA INHALER IH PRN (22:40)
[2020-02-19] MEDS: PIPERACILLIN/TAZOB 3.375 GM 3.375 GM in DEXTROSE 5%-WATER - 50 ML IVPB SCH ×3 (02:26→17:05)
[2020-02-19] MEDS ORDERED: DEXTROSE 5%-WATER - 50 ML IVPB ONE ×3 (02:56→13:22)
[2020-02-19] MEDS ORDERED: PIPERACILLIN/TAZOBACTAM 3.375 GM VIAL IVPB ONE ×3 (02:56→13:22)
[2020-02-19] MEDS ORDERED: PT OWN MED DRAWER 7, Y5N ONE ×2 (05:47→10:05)
[2020-02-19] MEDS ORDERED: METHADONE HCL 40 MG DISPERSABLE TABLET PO SCH (06:00)
[2020-02-19] MEDS ORDERED: VANCOMYCIN HCL 1,250 MG in DEXTROSE 5%-WATER - 250 ML IVPB SCH (06:00)
[2020-02-19] MEDS: INSULIN SLIDING SCALE (NOVOLOG) 1 VIAL SQ SCH ×4 (07:10→21:08)
[2020-02-19 08:43] LABS: URINE APPEARANCE CLEAR; URINE BILIRUBIN NEGATIVE (NEGATIVE); URINE COLOR YELLOW; URINE GLUCOSE (UA) NEGATIVE (NEGATIVE); URINE KETONE NEGATIVE (NEGATIVE); URINE LEUK ESTERASE TRACE (NEGATIVE); URINE NITRITE NEGATIVE (NEGATIVE); URINE PROTEIN NEGATIVE (NEGATIVE); URINE UROBILINOGEN 0.2 mg/dL (0.2-1.0)
[2020-02-19 10:23] LABS: EPI CELLS 15 /uL (0-25.1); HYALINE CASTS 0.77 /uL (0-3.1); URINE BACTERIA 40.1 /uL (0-1359); URINE RBC 40.8 /uL (0-23.9); URINE WBC 9.1 /uL (0-25.8)
[2020-02-19 10:24] LABS: URINE CRYSTALS MANY /hpf
--- NOTE | 2020-02-19 10:36 | PN ---
Progress Note, Physician History of Present Illness: looks better says she feels better - Current Medication List Current Medications: Active Medications Acetaminophen (Tylenol -) 650 mg PO Q4H PRN PRN Reason: PAIN LEVEL 6-10 Albuterol Sulfate (Ventolin Hfa Inhaler -) 2 puff IH Q4H PRN PRN Reason: SHORT OF BREATH/WHEEZING Last Admin: 02/18/20 22:40 Dose: 2 puff Documented by: Elvitegravir/Cobicis/Emtricit/Tenof (Genvoya (Non-Formulary)) 1 tab PO DAILY [facility] Enoxaparin Sodium (Lovenox -) 40 mg SQ DAILY [facility] Last Admin: 02/18/20 10:52 Dose: 40 mg Documented by: Ferrous Sulfate (Feosol -) 325 mg PO DAILY [facility] Piperacillin Sod/Tazobactam (Sod 3.375 gm/ Dextrose) 50 mls @ 100 mls/hr IVPB Q8H-IV [facility]; Protocol Last Admin: 02/19/20 02:26 Dose: 100 mls/hr Documented by: Vancomycin HCl 1,250 mg/ (Dextrose) 250 mls @ 250 mls/2 hr IVPB Q24H [facility]; Protocol Last Admin: 02/19/20 06:09 Dose: 250 mls/2 hr Documented by: Insulin Aspart (Novolog Vial Sliding Scale -) 1 vial SQ ACHS [facility]; Protocol Last Admin: 02/19/20 07:10 Dose: Not Given Documented by: Methadone HCl (Dolophine -) 120 mg PO DAILY@0600 [facility] Multivitamins/Minerals/Vitamin C (Tab-A-Vit -) 1 tab PO DAILY [facility] - Objective Vital Signs: Vital Signs Temperature 98.5 F 02/19/20 06:00 Pulse Rate 53 L 02/19/20 06:00 Respiratory Rate 20 02/19/20 06:00 Blood Pressure 99/58 L 02/19/20 06:00 O2 Sat by Pulse Oximetry (%) 97 02/19/20 06:00 Constitutional: Yes: No Distress, Calm Cardiovascular: Yes: Murmur, S1, S2 Respiratory: Yes: Regular, CTA Bilaterally Gastrointestinal: Yes: Normal Bowel Sounds, Soft Musculoskeletal: Yes: WNL Extremities: Yes: Erythema (of both hands), Other Integumentary: Yes: Erythema Wound/Incision: Yes: Clean/Dry Neurological: Yes: Alert, Oriented Psychiatric: Yes: Alert, Oriented Labs: CBC, BMP 02/18/20 06:45 02/18/20 06:45 - ....Imaging Other: Report Reviewed, Image Reviewed (echo) Assessment/Plan patient with multiple medical issues,coming in with cellulitis of the arms rt is slightly worse this is due to her injecting cellulitis of the hands leukocytosis hiv iv drug abuser plan will stop vanco continue zosyn rest as per the team
[2020-02-19] MEDS: FERROUS SO4 325 MG TABLET (FP) PO SCH (10:48)
[2020-02-19] MEDS: ENOXAPARIN NA (PORCINE) 40 MG/0.4 ML DISP.SYRIN SQ SCH (10:48)
[2020-02-19] MEDS: ELVITEG/COB/EMTRI/TENOF (GENVOYA) TABLET (NF) PO SCH (10:48)
[2020-02-19] MEDS: METHADONE HCL 40 MG DISPERSABLE TABLET PO SCH (10:48)
[2020-02-19] MEDS: MULTIVITAMINS (DAILY MVI) TABLET (FP) PO SCH (10:49)
--- NOTE | 2020-02-19 11:19 | PN ---
Progress Note, Physician Chief Complaint: No chest pain or sob Requesting methadone History of Present Illness: 54 year old female with a pmhx of emphysema, dm, hiv, htn, etoh and heroine/cocaine use admitted with b/l forearm swelling. Cellulitis on ct scan. No chest pain, sob, or palpitations. No pnd, orthopnea, or edema. No syncope. - Current Medication List Current Medications: Active Medications Acetaminophen (Tylenol -) 650 mg PO Q4H PRN PRN Reason: PAIN LEVEL 6-10 Albuterol Sulfate (Ventolin Hfa Inhaler -) 2 puff IH Q4H PRN PRN Reason: SHORT OF BREATH/WHEEZING Last Admin: 02/18/20 22:40 Dose: 2 puff Documented by: Elvitegravir/Cobicis/Emtricit/Tenof (Genvoya (Non-Formulary)) 1 tab PO DAILY [facility] Last Admin: 02/19/20 10:48 Dose: 1 tab Documented by: Enoxaparin Sodium (Lovenox -) 40 mg SQ DAILY [facility] Last Admin: 02/19/20 10:48 Dose: 40 mg Documented by: Ferrous Sulfate (Feosol -) 325 mg PO DAILY [facility] Last Admin: 02/19/20 10:48 Dose: 325 mg Documented by: Piperacillin Sod/Tazobactam (Sod 3.375 gm/ Dextrose) 50 mls @ 100 mls/hr IVPB Q8H-IV [facility]; Protocol Last Admin: 02/19/20 10:47 Dose: 100 mls/hr Documented by: Insulin Aspart (Novolog Vial Sliding Scale -) 1 vial SQ ACHS [facility]; Protocol Last Admin: 02/19/20 11:00 Dose: Not Given Documented by: Methadone HCl (Dolophine -) 120 mg PO DAILY@0600 [facility] Last Admin: 02/19/20 10:48 Dose: 120 mg Documented by: Multivitamins/Minerals/Vitamin C (Tab-A-Vit -) 1 tab PO DAILY [facility] Last Admin: 02/19/20 10:49 Dose: 1 tab Documented by: - Objective Vital Signs: Vital Signs Temperature 98.5 F 02/19/20 06:00 Pulse Rate 53 L 02/19/20 06:00 Respiratory Rate 20 02/19/20 06:00 Blood Pressure 99/58 L 02/19/20 06:00 O2 Sat by Pulse Oximetry (%) 97 02/19/20 06:00 Constitutional: Yes: No Distress Cardiovascular: Yes: Regular Rate and Rhythm, Murmur (subtle HSM LLSB), S1, S2 Respiratory: Yes: CTA Bilaterally Gastrointestinal: Yes: Soft Extremities: Yes: Other (+ cellulitis b/l forearms) Labs: CBC, BMP 02/18/20 06:45 02/18/20 06:45 Problem List - Problems (1) Cellulitis Code(s): L03.90 - CELLULITIS, UNSPECIFIED Qualifiers: Site of cellulitis: extremity Site of cellulitis of extremity: upper extremity Laterality: right Qualified Code(s): L03.113 - Cellulitis of right upper limb Assessment/Plan 54 year old female with a pmhx of emphysema, dm, hiv, htn, etoh and heroine/cocaine use admitted with b/l forearm swelling. Cellulitis on ct scan. No chest pain, sob, or palpitations. No pnd, orthopnea, or edema. No syncope. 1) Cardiac Systolic murmur in tricuspid area. No fever +cellulitis Active IVDU At risk for endocarditis, very subtle murmur. Echocardiogram unremarkable. EKG normal. No fevers. Abx as per primary team Bld Cx's No further cardiac testing at this time. Encouraged against drug abuse as will likely develop further infections with IVDU explalined to patient. Will sign off
--- NOTE | 2020-02-19 12:43 | PN ---
Physical Exam: SUBJECTIVE: Patient seen and examined at bedside. The patient reports her shortness of breath is the same as yesterday, as it's been for the past year. She also reports having a sore throat. Mild to minimal posterior pharynx erythema and no tonsular exudates found on exam using a flashlight. She also reports numbness in her feet bilaterally, which are very dry with yellowish toe nails bilaterally. She denies fever/chills. The patient has a left wrist/hand swelling on the dorsal, lateral aspect with hyperpigmentation as well as fluctu atance and tenderness to palpation of the swelling. OBJECTIVE: Vital Signs Period Temp Pulse Resp BP Sys/Herring Pulse Ox Last 24 Hr 97.6 F-98.5 F 53-77 20-20 99-115/53-58 95-98 GENERAL: The patient is awake, alert, and fully oriented, in no acute distress. HEAD: Normal with no signs of trauma. EYES: Extraocular movements intact. No ptosis. ENT: Ears normal, nares patent, oropharynx clear without exudates, moist mucous membranes. Mild to minimal posterior pharynx erythema and no tonsular exudates seen. NECK: Trachea midline, full range of motion, supple. LUNGS: Breath sounds equal, clear to auscultation bilaterally, no wheezes, no crackles, no accessory muscle use. HEART: Regular rate and rhythm, S1, S2. ABDOMEN: Soft, nontender, nondistended, normoactive bowel sounds, no guarding, no rebound, no masses. EXTREMITIES: 2+ pulses, warm, well-perfused, no edema. NEUROLOGICAL: Normal speech, gait not observed. PSYCH: Normal mood, normal affect. SKIN: Warm, dry, normal turgor. Swelling and hyperpigmentation on arms bilaterally nontender to touch. Track ness bilaterally on arms. Left wrist/hand has a swelling on the dorsal, lateral aspect with hyperpigmentation and fluctuatance and tenderness to palpation. Feet dry with yellowish toe nails bilaterally. Laboratory Results - last 24 hr 02/19/20 07:02 Urine Color Yellow Urine Appearance Clear Urine pH 6.0 Ur Specific [place] 1.020 Urine Protein Negative Urine Glucose (UA) Negative Urine Ketones Negative Urine Blood Negative Urine Nitrite Negative Urine Bilirubin Negative Urine Urobilinogen 0.2 Ur Leukocyte Esterase Trace Urine WBC (Auto) 9.1 Urine RBC (Auto) 40.8 Urine Casts (Auto) 0.77 U Epithel Cells (Auto) 15 Urine Crystals (Auto) Many Urine Bacteria (Auto) 40.1 Active Medications Generic Name Dose Route Start Last Admin Trade Name Freq PRN Reason Stop Dose Admin Acetaminophen 650 mg 02/17/20 21:39 Tylenol - PO Q4H PRN PAIN LEVEL 6-10 Albuterol Sulfate 2 puff 02/17/20 20:44 02/18/20 22:40 Ventolin Hfa Inhaler - IH 2 puff Q4H PRN Administration SHORT OF BREATH/WHEEZING Elvitegravir/Cobicis/Emtricit/Tenof 1 tab 02/19/20 10:00 02/19/20 10:48 Genvoya (Non-Formulary) PO 1 tab DAILY [facility] Administration Enoxaparin Sodium 40 mg 02/18/20 10:00 02/19/20 10:48 Lovenox - SQ 40 mg DAILY [facility] Administration Ferrous Sulfate 325 mg 02/19/20 10:00 02/19/20 10:48 Feosol - PO 325 mg DAILY [facility] Administration Piperacillin Sod/Tazobactam 50 mls @ 100 mls/hr 02/18/20 18:00 02/19/20 10:47 Sod 3.375 gm/ Dextrose IVPB 100 mls/hr Q8H-IV [facility] Administration Protocol Insulin Aspart 1 vial 02/17/20 22:00 02/19/20 11:00 Novolog Vial Sliding Scale - SQ Not Given ACHS [facility] Protocol Methadone HCl 120 mg 02/19/20 10:00 02/19/20 10:48 Dolophine - PO 120 mg DAILY@0600 [facility] Administration Multivitamins/Minerals/Vitamin C 1 tab 02/19/20 10:00 02/19/20 10:49 Tab-A-Vit - PO 1 tab DAILY [facility] Administration ASSESSMENT/PLAN: 54 year old female patient with past medical history that includes HIV on Genvoya, IVDA of heroine and cocaine on methadone, and , who presented to the ED with bilateral upper extremity swelling. 1. Upper extremity cellulitis - Subcutaneous edema and emphysema suspicious for cellulitis on CT scan - Swelling and hyperpigmentation on arms bilaterally - On Zosyn 2. Possible Abscess - Left dorsal aspect of wrist/hand swelling with hyperpigmentation, tenderness and fluctuation on palpation - Previously performed CT was without contrast, so it was less capable of having seen abscesses - U/S 3. r/o Endocarditis - resolved - ECHO negative for endocarditis - On Zosyn 4. HIV - Genvoya # FEN - Monitoring Electrolytes, Regular Diet DVT PPx - Lovenox Visit type - Emergency Visit Emergency Visit: Yes ED Registration Date: 02/17/20 Care time: The patient presented to the Emergency Department on the above date and was hospitalized for further evaluation of their emergent condition. - New Patient This patient is new to me today: No - Critical Care Critical Care patient: No - Discharge Referral Referred to [facility] Med P.C.: No ATTENDING PHYSICIAN STATEMENT I saw and evaluated the patient. I reviewed the resident's note and discussed the case with the resident. I agree with the resident's findings and plan as documented. SUBJECTIVE: OBJECTIVE: ASSESSMENT AND PLAN:
--- NOTE | 2020-02-19 18:26 | PN ---
Teaching Attending Note Name of Resident: Shaun Bautista ATTENDING PHYSICIAN STATEMENT I saw and evaluated the patient. I reviewed the resident's note and discussed the case with the resident. I agree with the resident's findings and plan as documented. SUBJECTIVE: Patient is comfortable with NAD OBJECTIVE: Vital Signs Temperature 97.9 F 02/19/20 14:00 Pulse Rate 55 L 02/19/20 14:00 Respiratory Rate 16 02/19/20 14:00 Blood Pressure 98/53 L 02/19/20 14:00 O2 Sat by Pulse Oximetry (%) 97 02/19/20 16:00 PE: per resident's note CBCD WBC 4.3 K/mm3 (4.0-10.0) 02/18/20 06:45 RBC 4.15 M/mm3 (3.60-5.2) 02/18/20 06:45 Hgb 11.1 GM/dL (10.7-15.3) 02/18/20 06:45 Hct 35.1 % (32.4-45.2) 02/18/20 06:45 MCV 84.5 fl (80-96) 02/18/20 06:45 MCHC 31.8 g/dl (32.0-36.0) L 02/18/20 06:45 RDW 14.5 % (11.6-15.6) 02/18/20 06:45 Plt Count 213 K/MM3 (134-434) 02/18/20 06:45 MPV 7.3 fl (7.5-11.1) L 02/18/20 06:45 CMP Sodium 137 mmol/L (136-145) 02/18/20 06:45 Potassium 4.7 mmol/L (3.5-5.1) 02/18/20 06:45 Chloride 104 mmol/L (98-107) 02/18/20 06:45 Carbon Dioxide 30 mmol/L (21-32) 02/18/20 06:45 Anion Gap 4 MMOL/L (8-16) L 02/18/20 06:45 BUN 16.1 mg/dL (7-18) 02/18/20 06:45 Creatinine 0.7 mg/dL (0.55-1.3) 02/18/20 06:45 Random Glucose 75 mg/dL (74-106) 02/18/20 06:45 Calcium 8.4 mg/dL (8.5-10.1) L 02/18/20 06:45 Total Bilirubin 0.3 mg/dL (0.2-1) 02/18/20 06:45 AST 20 U/L (15-37) 02/18/20 06:45 ALT 16 U/L (13-61) 02/18/20 06:45 Alkaline Phosphatase 69 U/L (45-117) 02/18/20 06:45 Total Protein 6.8 g/dl (6.4-8.2) 02/18/20 06:45 Albumin 2.6 g/dl (3.4-5.0) L 02/18/20 06:45 Current Medications Generic Name Dose Route Start Last Admin Trade Name Freq PRN Reason Stop Dose Admin Acetaminophen 650 mg 02/17/20 21:39 Tylenol - PO Q4H PRN PAIN LEVEL 6-10 Albuterol Sulfate 2 puff 02/17/20 20:44 02/18/20 22:40 Ventolin Hfa Inhaler - IH 2 puff Q4H PRN Administration SHORT OF BREATH/WHEEZING Elvitegravir/Cobicis/Emtricit/Tenof 1 tab 02/19/20 10:00 02/19/20 10:48 Genvoya (Non-Formulary) PO 1 tab DAILY [facility] Administration Enoxaparin Sodium 40 mg 02/18/20 10:00 02/19/20 10:48 Lovenox - SQ 40 mg DAILY [facility]AGROS Administration Ferrous Sulfate 325 mg 02/19/20 10:00 02/19/20 10:48 Feosol - PO 325 mg DAILY [facility]ROS Administration Piperacillin Sod/Tazobactam 50 mls @ 100 mls/hr 02/18/20 18:00 02/19/20 17:05 Sod 3.375 gm/ Dextrose IVPB 100 mls/hr Q8H-IV [facility]AGROS Administration Protocol Insulin Aspart 1 vial 02/17/20 22:00 02/19/20 16:30 Novolog Vial Sliding Scale - SQ Not Given ACHS MILAGROS Protocol Methadone HCl 120 mg 02/19/20 10:00 02/19/20 10:48 Dolophine - PO 120 mg DAILY@0600 [facility]ROS Administration Multivitamins/Minerals/Vitamin C 1 tab 02/19/20 10:00 02/19/20 10:49 Tab-A-Vit - PO 1 tab DAILY [facility]ROS Administration Home Medications Medication Instructions Recorded Albuterol Sulfate Inhaler - 2 inh IH Q6H PRN 02/18/20 [Ventolin Hfa Inhaler -] Budesonide/Formeterol Fumarate 2 inh IH BID PRN 02/18/20 [SYMBICORT 160/4.5mcg -] Clonidine HCl 0.3 mg PO BID 02/18/20 Elviteg/Cob/Emtri/Tenof Alafen 1 each PO DAILY 02/18/20 [Genvoya Tablet] Ferrous Sulfate 325 mg PO DAILY 02/18/20 Multivitamin 1 each PO DAILY 02/18/20 Microbiology 02/17/20 17:40 Blood - Peripheral Venous Blood Culture - Preliminary NO GROWTH OBTAINED AFTER 24 HOURS, INCUBATION TO CONTINUE FOR 4 DAYS. 02/17/20 17:40 Blood - Peripheral Venous Blood Culture - Preliminary NO GROWTH OBTAINED AFTER 24 HOURS, INCUBATION TO CONTINUE FOR [address] of upper extremity without contrast: Subcutaneous edema and emphysema suspecious for cellulitis(pronounced within the right forearm), no evidence of abscess. old Chip fracture about distal left humerus ASSESSMENT AND PLAN: This patient is a 54yof with a PMHx Emphysema, T2Dm, HIV, HTN, admitted for having bl upper extremity cellulitis/IVDA (heroin/Crack)admits for injecting herself. # Acute over chronic Upper extremity cellulitis/IVDA: On IV zosyn/vanco, ID consulted, ordered echo to r/o endocarditis #Polysubstance abuse: discussed abstinence # Hypertension: SBP is 105, not on any meds #HIV meds: On Genveya continue on Methadone: verified by the nurse, continue with methadone 120mg daily DVT prophylaxis - Lovenox 40 mg SQ
[2020-02-20] MEDS ORDERED: PIPERACILLIN/TAZOBACTAM 3.375 GM VIAL IVPB ONE ×3 (00:59→18:02)
[2020-02-20] MEDS ORDERED: DEXTROSE 5%-WATER - 50 ML IVPB ONE ×3 (01:00→18:02)
[2020-02-20] MEDS: PIPERACILLIN/TAZOB 3.375 GM 3.375 GM in DEXTROSE 5%-WATER - 50 ML IVPB SCH ×4 (01:15→18:04)
[2020-02-20] MEDS: INSULIN SLIDING SCALE (NOVOLOG) 1 VIAL SQ SCH ×2 (06:00→11:50)
[2020-02-20] MEDS: METHADONE HCL 40 MG DISPERSABLE TABLET PO SCH (06:01)
[2020-02-20] MEDS ORDERED: PT OWN MED DRAWER 7, Y5N ONE (09:09)
[2020-02-20] MEDS: MULTIVITAMINS (DAILY MVI) TABLET (FP) PO SCH (09:11)
[2020-02-20] MEDS: FERROUS SO4 325 MG TABLET (FP) PO SCH (09:11)
[2020-02-20] MEDS: ENOXAPARIN NA (PORCINE) 40 MG/0.4 ML DISP.SYRIN SQ SCH (09:12)
[2020-02-20] MEDS: ELVITEG/COB/EMTRI/TENOF (GENVOYA) TABLET (NF) PO SCH (09:12)
--- NOTE | 2020-02-20 10:23 | PN ---
Progress Note (short form) - Note Progress Note: Patient is feeling better with NAD. feels better , the arms are better as per patient Vital Signs Temperature 97.7 F 02/20/20 10:00 Pulse Rate 54 L 02/20/20 10:00 Respiratory Rate 18 02/20/20 10:00 Blood Pressure 108/62 02/20/20 10:00 O2 Sat by Pulse Oximetry (%) 97 02/20/20 06:00 GENERAL: The patient is awake, alert, and fully oriented, in no acute distress. HEAD: Normal with no signs of trauma. EYES: PERRL, extraocular movements intact, sclera anicteric, conjunctiva clear. ENT: Ears normal, oropharynx clear without exudates, moist mucous membranes. NECK: Trachea midline, full range of motion, supple. LUNGS: Breath sounds equal, CTA , no wheezes, no crackles, no accessory muscle use. HEART: Regular rate and rhythm, S1, S2 without murmur, rub or gallop. ABDOMEN: Soft, NT,ND, normoactive bowel sounds, no guarding, no rebound, no hepatosplenomegaly, no masses. EXTREMITIES: 2+ pulses, warm, RUE improving, less swelling NEUROLOGICAL: Cranial nerves II through XII grossly intact. Normal speech, gait not observed. PSYCH: Normal mood, normal affect. SKIN: Warm, dry, normal turgor, no rashes or lesions noted CBCD WBC 4.3 K/mm3 (4.0-10.0) 02/18/20 06:45 RBC 4.15 M/mm3 (3.60-5.2) 02/18/20 06:45 Hgb 11.1 GM/dL (10.7-15.3) 02/18/20 06:45 Hct 35.1 % (32.4-45.2) 02/18/20 06:45 MCV 84.5 fl (80-96) 02/18/20 06:45 MCHC 31.8 g/dl (32.0-36.0) L 02/18/20 06:45 RDW 14.5 % (11.6-15.6) 02/18/20 06:45 Plt Count 213 K/MM3 (134-434) 02/18/20 06:45 MPV 7.3 fl (7.5-11.1) L 02/18/20 06:45 CMP Sodium 137 mmol/L (136-145) 02/18/20 06:45 Potassium 4.7 mmol/L (3.5-5.1) 02/18/20 06:45 Chloride 104 mmol/L (98-107) 02/18/20 06:45 Carbon Dioxide 30 mmol/L (21-32) 02/18/20 06:45 Anion Gap 4 MMOL/L (8-16) L 02/18/20 06:45 BUN 16.1 mg/dL (7-18) 02/18/20 06:45 Creatinine 0.7 mg/dL (0.55-1.3) 02/18/20 06:45 Random Glucose 75 mg/dL (74-106) 02/18/20 06:45 Calcium 8.4 mg/dL (8.5-10.1) L 02/18/20 06:45 Total Bilirubin 0.3 mg/dL (0.2-1) 02/18/20 06:45 AST 20 U/L (15-37) 02/18/20 06:45 ALT 16 U/L (13-61) 02/18/20 06:45 Alkaline Phosphatase 69 U/L (45-117) 02/18/20 06:45 Total Protein 6.8 g/dl (6.4-8.2) 02/18/20 06:45 Albumin 2.6 g/dl (3.4-5.0) L 02/18/20 06:45 Current Medications Generic Name Dose Route Start Last Admin Trade Name Freq PRN Reason Stop Dose Admin Acetaminophen 650 mg 02/17/20 21:39 Tylenol - PO Q4H PRN PAIN LEVEL 6-10 Albuterol Sulfate 2 puff 02/17/20 20:44 02/18/20 22:40 Ventolin Hfa Inhaler - IH 2 puff Q4H PRN Administration SHORT OF BREATH/WHEEZING Elvitegravir/Cobicis/Emtricit/Tenof 1 tab 02/19/20 10:00 02/20/20 09:12 Genvoya (Non-Formulary) PO 1 tab DAILY [facility] Administration Enoxaparin Sodium 40 mg 02/18/20 10:00 02/20/20 09:12 Lovenox - SQ 40 mg DAILY [facility]AGROS Administration Ferrous Sulfate 325 mg 02/19/20 10:00 02/20/20 09:11 Feosol - PO 325 mg DAILY [facility]AGROS Administration Piperacillin Sod/Tazobactam 50 mls @ 100 mls/hr 02/18/20 18:00 02/20/20 09:11 Sod 3.375 gm/ Dextrose IVPB 100 mls/hr Q8H-IV [facility]AGROS Administration Protocol Insulin Aspart 1 vial 02/17/20 22:00 02/20/20 06:00 Novolog Vial Sliding Scale - SQ Not Given ACHS [facility]AGROS Protocol Methadone HCl 120 mg 02/19/20 10:00 02/20/20 06:01 Dolophine - PO 120 mg DAILY@0600 [facility] Administration Multivitamins/Minerals/Vitamin C 1 tab 02/19/20 10:00 02/20/20 09:11 Tab-A-Vit - PO 1 tab DAILY [facility]ROS Administration Home Medications Medication Instructions Recorded Albuterol Sulfate Inhaler - 2 inh IH Q6H PRN 02/18/20 [Ventolin Hfa Inhaler -] Budesonide/Formeterol Fumarate 2 inh IH BID PRN 02/18/20 [SYMBICORT 160/4.5mcg -] Elviteg/Cob/Emtri/Tenof Alafen 1 each PO DAILY 02/18/20 [Genvoya Tablet] RX: Clonidine HCl 0.3 mg PO BID 02/18/20 RX: Ferrous Sulfate 325 mg PO DAILY 02/18/20 RX: Multivitamin 1 each PO DAILY 02/18/20 Microbiology 02/18/20 07:02 Urine - Urine Clean Catch Urine Culture - Final NO GROWTH OBTAINED 02/17/20 17:40 Blood - Peripheral Venous Blood Culture - Preliminary NO GROWTH OBTAINED AFTER 48 HOURS, INCUBATION TO CONTINUE FOR 3 DAYS. 02/17/20 17:40 Blood - Peripheral Venous Blood Culture - Preliminary NO GROWTH OBTAINED AFTER 48 HOURS, INCUBATION TO CONTINUE FOR [address] of upper extremity without contrast: Subcutaneous edema and emphysema suspecious for cellulitis(pronounced within the right forearm), no evidence of abscess. old Chip fracture about distal left humerus ASSESSMENT AND PLAN: This patient is a 54yof with a PMHx Emphysema, T2Dm, HIV, HTN, admitted for having bl upper extremity cellulitis/IVDA (heroin/Crack)admits for injecting herself. # Acute over chronic Upper extremity cellulitis/IVDA: On IV zosyn/vanco, ID consulted, ordered echo to r/o endocarditis #Polysubstance abuse: discussed abstinence # Hypertension: SBP is 105, not on any meds #HIV meds: On Genveya continue on Methadone: verified by the nurse, continue with methadone 120mg daily DVT prophylaxis - Lovenox 40 mg SQ Visit type - Emergency Visit Emergency Visit: Yes ED Registration Date: 02/17/20 Care time: The patient presented to the Emergency Department on the above date and was hospitalized for further evaluation of their emergent condition. - New Patient This patient is new to me today: No - Critical Care Critical Care patient: No - Discharge Referral [facility]erred to [facility] Med P.C.: No
[2020-02-20 11:27] LABS: HEMATOCRIT 40.5 % (32.4-45.2); HEMOGLOBIN 13.1 GM/dL (10.7-15.3); MCH 27.7 pg (25.7-33.7); MCHC 32.3 g/dl (32.0-36.0); MEAN CELL VOLUME 85.8 fl (80-96); MEAN PLT VOLUME 7.1 fl (7.5-11.1); PLATELET COUNT 278 K/MM3 (134-434); RBC 4.72 M/mm3 (3.60-5.2); RDW 14.9 % (11.6-15.6); WHITE BLOOD COUNT 3.9 K/mm3 (4.0-10.0)
[2020-02-20] MEDS: ALBUTEROL SO4 HFA INHALER IH PRN (11:47)
[2020-02-20 11:51] LABS: BLOOD UREA NITROGEN 20.4 mg/dL (7-18); CALCIUM 8.8 mg/dL (8.5-10.1); CREATININE 0.9 mg/dL (0.55-1.3); POTASSIUM 4.8 mmol/L (3.5-5.1)
[2020-02-20] MEDS: ACETAMINOPHEN 325 MG TABLET (FP) PO PRN (14:46)
--- NOTE | 2020-02-20 15:45 | PN ---
Progress Note, Physician History of Present Illness: Pt states she feels better with less swelling in arms. Afebrile. No specific complaints. - Current Medication List Current Medications: Active Medications Acetaminophen (Tylenol -) 650 mg PO Q4H PRN PRN Reason: PAIN LEVEL 6-10 Last Admin: 02/20/20 14:46 Dose: 650 mg Documented by: Albuterol Sulfate (Ventolin Hfa Inhaler -) 2 puff IH Q4H PRN PRN Reason: SHORT OF BREATH/WHEEZING Last Admin: 02/20/20 11:47 Dose: 2 puff Documented by: Elvitegravir/Cobicis/Emtricit/Tenof (Genvoya (Non-Formulary)) 1 tab PO DAILY [facility] Last Admin: 02/20/20 09:12 Dose: 1 tab Documented by: Enoxaparin Sodium (Lovenox -) 40 mg SQ DAILY [facility] Last Admin: 02/20/20 09:12 Dose: 40 mg Documented by: Ferrous Sulfate (Feosol -) 325 mg PO DAILY [facility] Last Admin: 02/20/20 09:11 Dose: 325 mg Documented by: Piperacillin Sod/Tazobactam (Sod 3.375 gm/ Dextrose) 50 mls @ 100 mls/hr IVPB Q8H-IV MILAGROS; Protocol Last Admin: 02/20/20 09:11 Dose: 100 mls/hr Documented by: Methadone HCl (Dolophine -) 120 mg PO DAILY@0600 [facility] Last Admin: 02/20/20 06:01 Dose: 120 mg Documented by: Multivitamins/Minerals/Vitamin C (Tab-A-Vit -) 1 tab PO DAILY [facility] Last Admin: 02/20/20 09:11 Dose: 1 tab Documented by: - Objective Vital Signs: Vital Signs Temperature 97.7 F 02/20/20 14:00 Pulse Rate 55 L 02/20/20 14:00 Respiratory Rate 16 02/20/20 14:00 Blood Pressure 113/56 L 02/20/20 14:00 O2 Sat by Pulse Oximetry (%) 97 02/20/20 06:00 Constitutional: Yes: No Distress, Calm Cardiovascular: Yes: Regular Rate and Rhythm Respiratory: Yes: Regular Gastrointestinal: Yes: Normal Bowel Sounds, Soft Genitourinary: Yes: WNL Extremities: Yes: Other (RUE mild edema, erythema b/l UE, no drainage) Integumentary: Yes: Other (track ness on b/l UE) Neurological: Yes: Alert Labs: CBC, BMP 02/20/20 10:35 02/20/20 10:35 Laboratory Last Values WBC 3.9 K/mm3 (4.0-10.0) L 02/20/20 10:35 RBC 4.72 M/mm3 (3.60-5.2) 02/20/20 10:35 Hgb 13.1 GM/dL (10.7-15.3) 02/20/20 10:35 Hct 40.5 % (32.4-45.2) D 02/20/20 10:35 MCV 85.8 fl (80-96) 02/20/20 10:35 MCH 27.7 pg (25.7-33.7) 02/20/20 10:35 MCHC 32.3 g/dl (32.0-36.0) 02/20/20 10:35 RDW 14.9 % (11.6-15.6) 02/20/20 10:35 Plt Count 278 K/MM3 (134-434) D 02/20/20 10:35 MPV 7.1 fl (7.5-11.1) L 02/20/20 10:35 Absolute Neuts (auto) 2.8 K/mm3 (1.5-8.0) 02/18/20 06:45 Neutrophils % 65.1 % (42.8-82.8) 02/18/20 06:45 Lymphocytes % 24.2 % (8-40) 02/18/20 06:45 Monocytes % 7.7 % (3.8-10.2) 02/18/20 06:45 Eosinophils % 2.4 % (0-4.5) 02/18/20 06:45 Basophils % 0.6 % (0-2.0) 02/18/20 06:45 Nucleated RBC % 0 % (0-0) 02/18/20 06:45 Sodium 137 mmol/L (136-145) 02/20/20 10:35 Potassium 4.8 mmol/L (3.5-5.1) 02/20/20 10:35 Chloride 100 mmol/L (98-107) 02/20/20 10:35 Carbon Dioxide 31 mmol/L (21-32) 02/20/20 10:35 Anion Gap 6 MMOL/L (8-16) L 02/20/20 10:35 BUN 20.4 mg/dL (7-18) H 02/20/20 10:35 Creatinine 0.9 mg/dL (0.55-1.3) 02/20/20 10:35 Est GFR (CKD-EPI)AfAm 84.01 02/20/20 10:35 Est GFR (CKD-EPI)NonAf 72.49 02/20/20 10:35 POC Glucometer 81 UNITS (80-120) 02/18/20 11:08 Random Glucose 106 mg/dL (74-106) 02/20/20 10:35 Hemoglobin A1c % 5.9 % (4.2-6.3) 02/18/20 06:45 Calcium 8.8 mg/dL (8.5-10.1) 02/20/20 10:35 Phosphorus 3.1 mg/dL (2.5-4.9) 02/18/20 06:45 Magnesium 2.2 mg/dL (1.8-2.4) 02/18/20 06:45 Total Bilirubin 0.3 mg/dL (0.2-1) 02/18/20 06:45 AST 20 U/L (15-37) 02/18/20 06:45 ALT 16 U/L (13-61) 02/18/20 06:45 Alkaline Phosphatase 69 U/L (45-117) 02/18/20 06:45 Total Protein 6.8 g/dl (6.4-8.2) 02/18/20 06:45 Albumin 2.6 g/dl (3.4-5.0) L 02/18/20 06:45 Urine Color Yellow 02/19/20 07:02 Urine Appearance Clear 02/19/20 07:02 Urine pH 6.0 (5.0-8.0) 02/19/20 07:02 Ur Specific [place] 1.020 (1.010-1.035) 02/19/20 07:02 Urine Protein Negative (NEGATIVE) 02/19/20 07:02 Urine Glucose (UA) Negative (NEGATIVE) 02/19/20 07:02 Urine Ketones Negative (NEGATIVE) 02/19/20 07:02 Urine Blood Negative (NEGATIVE) 02/19/20 07:02 Urine Nitrite Negative (NEGATIVE) 02/19/20 07:02 Urine Bilirubin Negative (NEGATIVE) 02/19/20 07:02 Urine Urobilinogen 0.2 mg/dL (0.2-1.0) 02/19/20 07:02 Ur Leukocyte Esterase Trace (NEGATIVE) 02/19/20 07:02 Urine WBC (Auto) 9.1 /uL (0-25.8) 02/19/20 07:02 Urine RBC (Auto) 40.8 /uL (0-23.9) 02/19/20 07:02 Urine Casts (Auto) 0.77 /uL (0-3.1) 02/19/20 07:02 U Epithel Cells (Auto) 15 /uL (0-25.1) 02/19/20 07:02 Urine Crystals (Auto) Many /hpf 02/19/20 07:02 Urine Bacteria (Auto) 40.1 /uL (0-1359) 02/19/20 07:02 COVID-19 ([facility]LAKE) Not detected (Not Detected) 02/17/20 19:10 HIV Ag/Ab Combo Qual Presumptive positive (NEGATIVE) A* 02/17/20 23:00 HIV-1 Antibody Positive (Negative) H 02/17/20 23:00 HIV Ag/Ab Interpret Hiv-1 positive (.) 02/17/20 23:00 HIV-2 Antibody Negative (Negative) 02/17/20 23:00 HIV 1&2 Ag/Ab, 4th Gen Reactive (Non Reactive) H 02/17/20 23:00 HIV 1&2 Ab Final Interp Cancelled 02/17/20 22:56 Microbiology 02/18/20 07:02 Urine - Urine Clean Catch Urine Culture - Final NO GROWTH OBTAINED 02/17/20 17:40 Blood - Peripheral Venous Blood Culture - Preliminary NO GROWTH OBTAINED AFTER 48 HOURS, INCUBATION TO CONTINUE FOR 3 DAYS. 02/17/20 17:40 Blood - Peripheral Venous Blood Culture - Preliminary NO GROWTH OBTAINED AFTER 48 HOURS, INCUBATION TO CONTINUE FOR 3 DAYS. - ....Imaging X-ray: Report Reviewed Other: Report Reviewed Problem List - Problems (1) Cellulitis Code(s): L03.90 - CELLULITIS, UNSPECIFIED Qualifiers: Site of cellulitis: extremity Site of cellulitis of extremity: upper extremity Laterality: right Qualified Code(s): L03.113 - Cellulitis of right upper limb (2) Intravenous drug abuse Code(s): F19.10 - OTHER PSYCHOACTIVE SUBSTANCE ABUSE, UNCOMPLICATED (3) Alcohol use disorder Code(s): BYW7295 - (4) Cocaine use disorder Code(s): F14.10 - COCAINE ABUSE, UNCOMPLICATED Assessment/Plan UE cellulitis IVDU HIV on HAART Substance abuse ETOH abuse -- showing some improvement, continue antibiotics -- Blood Cultures neg so far, Echo without obvious vegetations -- continue antiretroviral med
[2020-02-21] MEDS ORDERED: DEXTROSE 5%-WATER - 50 ML IVPB ONE ×3 (02:41→17:28)
[2020-02-21] MEDS ORDERED: PIPERACILLIN/TAZOBACTAM 3.375 GM VIAL IVPB ONE ×3 (02:41→17:27)
[2020-02-21] MEDS: PIPERACILLIN/TAZOB 3.375 GM 3.375 GM in DEXTROSE 5%-WATER - 50 ML IVPB SCH ×3 (02:45→17:48)
[2020-02-21] MEDS: METHADONE HCL 40 MG DISPERSABLE TABLET PO SCH (06:48)
[2020-02-21] MEDS ORDERED: PT OWN MED DRAWER 7, Y5N ONE ×2 (09:20→18:59)
[2020-02-21] MEDS: MULTIVITAMINS (DAILY MVI) TABLET (FP) PO SCH (09:24)
[2020-02-21] MEDS: FERROUS SO4 325 MG TABLET (FP) PO SCH (09:24)
[2020-02-21] MEDS: ENOXAPARIN NA (PORCINE) 40 MG/0.4 ML DISP.SYRIN SQ SCH (09:29)
[2020-02-21] MEDS: ELVITEG/COB/EMTRI/TENOF (GENVOYA) TABLET (NF) PO SCH (09:29)
[2020-02-21] MEDS: ACETAMINOPHEN 325 MG TABLET (FP) PO PRN (12:25)
--- NOTE | 2020-02-21 15:00 | PN ---
Physical Exam: SUBJECTIVE: Patient seen and examined at bedside. Patient reports no fever/chills, but having some shortness of breath still at night and in the morning, but not during the day. She has a mild cough in the morning, and asks if she can have medication to loosen the phlegm in her chest and for her mild cough. Mucinex ordered after seeing the patient. OBJECTIVE: Vital Signs Period Temp Pulse Resp BP Sys/Herring Pulse Ox Last 24 Hr 97-98 GENERAL: The patient is awake, alert, and fully oriented, in no acute distress. HEAD: Normal with no signs of trauma. EYES: Extraocular movements intact. No ptosis. ENT: Ears normal, nares patent, oropharynx clear without exudates, moist mucous membranes. Mild to minimal posterior pharynx erythema and no tonsular exudates seen. NECK: Trachea midline, full range of motion, supple. LUNGS: Breath sounds equal, clear to auscultation bilaterally, no wheezes, no crackles, no accessory muscle use. HEART: Regular rate and rhythm, S1, S2. ABDOMEN: Soft, nontender, nondistended, normoactive bowel sounds, no guarding, no rebound, no masses. EXTREMITIES: 2+ pulses, warm, well-perfused, no edema. NEUROLOGICAL: Normal speech, gait not observed. PSYCH: Normal mood, normal affect. SKIN: Warm, dry, normal turgor. Swelling and hyperpigmentation on arms b ilaterally nontender to touch. Track ness bilaterally on arms. Left wrist/hand has a swelling on the dorsal, lateral aspect with hyperpigmentation and fluctuatance and tenderness to palpation. Active Medications Generic Name Dose Route Start Last Admin Trade Name Freq PRN Reason Stop Dose Admin Acetaminophen 650 mg 02/20/20 14:25 02/21/20 12:25 Tylenol - PO 650 mg Q4H PRN Administration PAIN LEVEL 6-10 Albuterol Sulfate 2 puff 02/17/20 20:44 02/20/20 11:47 Ventolin Hfa Inhaler - IH 2 puff Q4H PRN Administration SHORT OF BREATH/WHEEZING Elvitegravir/Cobicis/Emtricit/Tenof 1 tab 02/19/20 10:00 02/21/20 09:29 Genvoya (Non-Formulary) PO 1 tab DAILY [facility] Administration Enoxaparin Sodium 40 mg 02/18/20 10:00 02/21/20 09:29 Lovenox - SQ 40 mg DAILY [facility] Administration Ferrous Sulfate 325 mg 02/19/20 10:00 02/21/20 09:24 Feosol - PO 325 mg DAILY [facility] Administration Guaifenesin 600 mg 02/21/20 22:00 Mucinex - PO BID MILAGROS Piperacillin Sod/Tazobactam 50 mls @ 100 mls/hr 02/18/20 18:00 02/21/20 09:29 Sod 3.375 gm/ Dextrose IVPB 100 mls/hr Q8H-IV MILAGROS Administration Protocol Methadone HCl 120 mg 02/19/20 10:00 02/21/20 06:48 Dolophine - PO 120 mg DAILY@0600 [facility] Administration Multivitamins/Minerals/Vitamin C 1 tab 02/19/20 10:00 02/21/20 09:24 Tab-A-Vit - PO 1 tab DAILY [facility] Administration ASSESSMENT/PLAN: 54 year old female patient with past medical history that includes HIV on Genvoya, IVDA of heroine and cocaine on methadone, and , who presented to the ED with bilateral upper extremity swelling. 1. Upper extremity cellulitis - Subcutaneous edema and emphysema suspicious for cellulitis on CT scan - Swelling and hyperpigmentation on arms bilaterally - Left dorsal aspect of wrist/hand swelling with hyperpigmentation, tenderness and fluctuation on palpation - On Zosyn 2. r/o Endocarditis - resolved - ECHO negative for endocarditis - On Zosyn 3. HIV - Genvoya # FEN - Monitoring Electrolytes, Regular Diet DVT PPx - Lovenox Visit type - Emergency Visit Emergency Visit: Yes ED Registration Date: 02/17/20 Care time: The patient presented to the Emergency Department on the above date and was hospitalized for further evaluation of their emergent condition. - New Patient This patient is new to me today: No - Critical Care Critical Care patient: No - Discharge Referral Referred to [facility] Med P.C.: No ATTENDING PHYSICIAN STATEMENT I saw and evaluated the patient. I reviewed the resident's note and discussed the case with the resident. I agree with the resident's findings and plan as documented. SUBJECTIVE: OBJECTIVE: ASSESSMENT AND PLAN:
--- NOTE | 2020-02-21 15:10 | PN ---
Progress Note, Physician History of Present Illness: Pt had been complaining of some SOB at nighttime without productive cough. RUE edema improving. Remains afebrile, without distress. - Current Medication List Current Medications: Active Medications Acetaminophen (Tylenol -) 650 mg PO Q4H PRN PRN Reason: PAIN LEVEL 6-10 Last Admin: 02/21/20 12:25 Dose: 650 mg Documented by: Albuterol Sulfate (Ventolin Hfa Inhaler -) 2 puff IH Q4H PRN PRN Reason: SHORT OF BREATH/WHEEZING Last Admin: 02/20/20 11:47 Dose: 2 puff Documented by: Elvitegravir/Cobicis/Emtricit/Tenof (Genvoya (Non-Formulary)) 1 tab PO DAILY [facility] Last Admin: 02/21/20 09:29 Dose: 1 tab Documented by: Enoxaparin Sodium (Lovenox -) 40 mg SQ DAILY [facility] Last Admin: 02/21/20 09:29 Dose: 40 mg Documented by: Ferrous Sulfate (Feosol -) 325 mg PO DAILY [facility] Last Admin: 02/21/20 09:24 Dose: 325 mg Documented by: Guaifenesin (Mucinex -) 600 mg PO BID [facility] Piperacillin Sod/Tazobactam (Sod 3.375 gm/ Dextrose) 50 mls @ 100 mls/hr IVPB Q8H-IV MILAGROS; Protocol Last Admin: 02/21/20 09:29 Dose: 100 mls/hr Documented by: Methadone HCl (Dolophine -) 120 mg PO DAILY@0600 [facility] Last Admin: 02/21/20 06:48 Dose: 120 mg Documented by: Multivitamins/Minerals/Vitamin C (Tab-A-Vit -) 1 tab PO DAILY [facility] Last Admin: 02/21/20 09:24 Dose: 1 tab Documented by: - Objective Vital Signs: Vital Signs Temperature 97.7 F 02/21/20 14:00 Pulse Rate 55 L 02/21/20 14:00 Respiratory Rate 18 02/21/20 14:00 Blood Pressure 103/76 02/21/20 14:00 O2 Sat by Pulse Oximetry (%) 99 02/21/20 14:00 Constitutional: Yes: No Distress, Calm Cardiovascular: Yes: Regular Rate and Rhythm Respiratory: Yes: CTA Bilaterally Gastrointestinal: Yes: Normal Bowel Sounds, Soft Extremities: Yes: Other (RUE mild edema/erythema, no tenderness) Neurological: Yes: Alert, Oriented Labs: CBC, BMP 02/20/20 10:35 02/20/20 10:35 Problem List - Problems (1) Cellulitis Code(s): L03.90 - CELLULITIS, UNSPECIFIED Qualifiers: Site of cellulitis: extremity Site of cellulitis of extremity: upper extremity Laterality: right Qualified Code(s): L03.113 - Cellulitis of right upper limb (2) Intravenous drug abuse Code(s): F19.10 - OTHER PSYCHOACTIVE SUBSTANCE ABUSE, UNCOMPLICATED (3) Alcohol use disorder Code(s): FBA8585 - (4) Cocaine use disorder Code(s): F14.10 - COCAINE ABUSE, UNCOMPLICATED Assessment/Plan UE cellulitis IVDU HIV on HAART Substance abuse ETOH abuse -- improving, continue antibiotics -- Blood Cultures neg to date, afebrie -- continue Genvoya -- repeat labs in a.m.
--- NOTE | 2020-02-21 17:29 | PN ---
Teaching Attending Note Name of Resident: Shaun Bautista ATTENDING PHYSICIAN STATEMENT I saw and evaluated the patient. I reviewed the resident's note and discussed the case with the resident. I agree with the resident's findings and plan as documented. SUBJECTIVE: Patient is comfortable with NAD OBJECTIVE: Vital Signs Temperature 97.7 F 02/21/20 14:00 Pulse Rate 55 L 02/21/20 14:00 Respiratory Rate 18 02/21/20 14:00 Blood Pressure 103/76 02/21/20 14:00 O2 Sat by Pulse Oximetry (%) 99 02/21/20 15:40 PE; per resident's note CBCD WBC 3.9 K/mm3 (4.0-10.0) L 02/20/20 10:35 RBC 4.72 M/mm3 (3.60-5.2) 02/20/20 10:35 Hgb 13.1 GM/dL (10.7-15.3) 02/20/20 10:35 Hct 40.5 % (32.4-45.2) D 02/20/20 10:35 MCV 85.8 fl (80-96) 02/20/20 10:35 MCHC 32.3 g/dl (32.0-36.0) 02/20/20 10:35 RDW 14.9 % (11.6-15.6) 02/20/20 10:35 Plt Count 278 K/MM3 (134-434) D 02/20/20 10:35 MPV 7.1 fl (7.5-11.1) L 02/20/20 10:35 CMP Sodium 137 mmol/L (136-145) 02/20/20 10:35 Potassium 4.8 mmol/L (3.5-5.1) 02/20/20 10:35 Chloride 100 mmol/L (98-107) 02/20/20 10:35 Carbon Dioxide 31 mmol/L (21-32) 02/20/20 10:35 Anion Gap 6 MMOL/L (8-16) L 02/20/20 10:35 BUN 20.4 mg/dL (7-18) H 02/20/20 10:35 Creatinine 0.9 mg/dL (0.55-1.3) 02/20/20 10:35 Random Glucose 106 mg/dL (74-106) 02/20/20 10:35 Calcium 8.8 mg/dL (8.5-10.1) 02/20/20 10:35 Total Bilirubin 0.3 mg/dL (0.2-1) 02/18/20 06:45 AST 20 U/L (15-37) 02/18/20 06:45 ALT 16 U/L (13-61) 02/18/20 06:45 Alkaline Phosphatase 69 U/L (45-117) 02/18/20 06:45 Total Protein 6.8 g/dl (6.4-8.2) 02/18/20 06:45 Albumin 2.6 g/dl (3.4-5.0) L 02/18/20 06:45 Current Medications Generic Name Dose Route Start Last Admin Trade Name Freq PRN Reason Stop Dose Admin Acetaminophen 650 mg 02/20/20 14:25 02/21/20 12:25 Tylenol - PO 650 mg Q4H PRN Administration PAIN LEVEL 6-10 Albuterol Sulfate 2 puff 02/17/20 20:44 02/20/20 11:47 Ventolin Hfa Inhaler - IH 2 puff Q4H PRN Administration SHORT OF BREATH/WHEEZING Elvitegravir/Cobicis/Emtricit/Tenof 1 tab 02/19/20 10:00 02/21/20 09:29 Genvoya (Non-Formulary) PO 1 tab DAILY MILAGROS Administration Enoxaparin Sodium 40 mg 02/18/20 10:00 02/21/20 09:29 Lovenox - SQ 40 mg DAILY MILAGROS Administration Ferrous Sulfate 325 mg 02/19/20 10:00 02/21/20 09:24 Feosol - PO 325 mg DAILY MILAGROS Administration Guaifenesin 600 mg 02/21/20 22:00 Mucinex - PO BID MILAGROS Piperacillin Sod/Tazobactam 50 mls @ 100 mls/hr 02/18/20 18:00 02/21/20 09:29 Sod 3.375 gm/ Dextrose IVPB 100 mls/hr Q8H-IV MILAGROS Administration Protocol Methadone HCl 120 mg 02/19/20 10:00 02/21/20 06:48 Dolophine - PO 120 mg DAILY@0600 MILAGROS Administration Multivitamins/Minerals/Vitamin C 1 tab 02/19/20 10:00 08/16/20 09:24 Tab-A-Vit - PO 1 tab DAILY MILAGROS Administration Microbiology 02/17/20 17:40 Blood - Peripheral Venous Blood Culture - Preliminary NO GROWTH OBTAINED AFTER 72 HOURS, INCUBATION TO CONTINUE FOR 2 DAYS. 02/17/20 17:40 Blood - Peripheral Venous Blood Culture - Preliminary NO GROWTH OBTAINED AFTER 72 HOURS, INCUBATION TO CONTINUE FOR 2 DAYS. 02/18/20 07:02 Urine - Urine Clean Catch Urine Culture - Final NO GROWTH OBTAINED CT of upper extremity without contrast: Subcutaneous edema and emphysema suspecious for cellulitis(pronounced within the right forearm), no evidence of abscess. old Chip fracture about distal left humerus ASSESSMENT AND PLAN: This patient is a 54yof with a PMHx Emphysema, T2Dm, HIV, HTN, admitted for having bl upper extremity cellulitis/IVDA (heroin/Crack)admits for injecting herself. # Acute over chronic Upper extremity cellulitis/IVDA: On IV zosyn continue , ID on the case , echo: no endocarditis #Polysubstance abuse: discussed abstinence # Hypertension: SBP is 105, not on any meds #HIV meds: On Genveya continue on Methadone: verified by the nurse, continue with methadone 120mg daily DVT prophylaxis - Lovenox 40 mg SQ dc planning will check with ID in am
[2020-02-21] MEDS: guaiFENesin 600 MG TABLET.ER (FP) PO SCH (22:15)
[2020-02-22] MEDS ORDERED: PIPERACILLIN/TAZOBACTAM 3.375 GM VIAL IVPB ONE ×2 (01:36→10:06)
[2020-02-22] MEDS ORDERED: DEXTROSE 5%-WATER - 50 ML IVPB ONE ×2 (01:36→10:06)
[2020-02-22] MEDS: PIPERACILLIN/TAZOB 3.375 GM 3.375 GM in DEXTROSE 5%-WATER - 50 ML IVPB SCH ×2 (02:05→10:19)
[2020-02-22] MEDS: METHADONE HCL 40 MG DISPERSABLE TABLET PO SCH (06:54)
[2020-02-22] MEDS ORDERED: SODIUM CHLORIDE 1,000 ML IV SCH (08:45)
[2020-02-22] MEDS ORDERED: PT OWN MED DRAWER 7, Y5N ONE (10:06)
[2020-02-22] MEDS: ELVITEG/COB/EMTRI/TENOF (GENVOYA) TABLET (NF) PO SCH (10:22)
[2020-02-22] MEDS: ENOXAPARIN NA (PORCINE) 40 MG/0.4 ML DISP.SYRIN SQ SCH (10:22)
[2020-02-22] MEDS: MULTIVITAMINS (DAILY MVI) TABLET (FP) PO SCH (10:22)
[2020-02-22] MEDS: FERROUS SO4 325 MG TABLET (FP) PO SCH (10:22)
[2020-02-22] MEDS: guaiFENesin 600 MG TABLET.ER (FP) PO SCH (10:22)
[2020-02-22 12:32] LABS: HEMATOCRIT 36.7 % (32.4-45.2); HEMOGLOBIN 11.7 GM/dL (10.7-15.3); MCH 27.4 pg (25.7-33.7); MCHC 31.8 g/dl (32.0-36.0); MEAN CELL VOLUME 86.1 fl (80-96); PLATELET COUNT 281 K/MM3 (134-434); RBC 4.26 M/mm3 (3.60-5.2); RDW 15.1 % (11.6-15.6); WHITE BLOOD COUNT 3.5 K/mm3 (4.0-10.0)
[2020-02-22 13:28] LABS: BLOOD UREA NITROGEN 17.5 mg/dL (7-18); CALCIUM 8.7 mg/dL (8.5-10.1); CREATININE 0.8 mg/dL (0.55-1.3); POTASSIUM 4.5 mmol/L (3.5-5.1)
--- NOTE | 2020-02-22 13:37 | PN ---
Progress Note, Physician History of Present Illness: stable cellulitis of the hands look much better - Current Medication List Current Medications: Active Medications Acetaminophen (Tylenol -) 650 mg PO Q4H PRN PRN Reason: PAIN LEVEL 6-10 Last Admin: 02/21/20 12:25 Dose: 650 mg Documented by: Albuterol Sulfate (Ventolin Hfa Inhaler -) 2 puff IH Q4H PRN PRN Reason: SHORT OF BREATH/WHEEZING Last Admin: 02/20/20 11:47 Dose: 2 puff Documented by: Elvitegravir/Cobicis/Emtricit/Tenof (Genvoya (Non-Formulary)) 1 tab PO DAILY [facility] Last Admin: 02/22/20 10:22 Dose: 1 tab Documented by: Enoxaparin Sodium (Lovenox -) 40 mg SQ DAILY [facility] Last Admin: 02/22/20 10:22 Dose: 40 mg Documented by: Ferrous Sulfate (Feosol -) 325 mg PO DAILY [facility] Last Admin: 02/22/20 10:22 Dose: 325 mg Documented by: Guaifenesin (Mucinex -) 600 mg PO BID [facility] Last Admin: 02/22/20 10:22 Dose: 600 mg Documented by: Piperacillin Sod/Tazobactam (Sod 3.375 gm/ Dextrose) 50 mls @ 100 mls/hr IVPB Q8H-IV MILAGROS; Protocol Last Admin: 02/22/20 10:19 Dose: 100 mls/hr Documented by: Sodium Chloride (Normal Saline -) 1,000 mls @ 150 mls/hr IV ASDIR MILAGROS Stop: 02/22/20 15:24 Last Admin: 02/22/20 10:18 Dose: 150 mls/hr Documented by: Methadone HCl (Dolophine -) 120 mg PO DAILY@0600 [facility] Last Admin: 02/22/20 06:54 Dose: 120 mg Documented by: Multivitamins/Minerals/Vitamin C (Tab-A-Vit -) 1 tab PO DAILY [facility] Last Admin: 02/22/20 10:22 Dose: 1 tab Documented by: - Objective Vital Signs: Vital Signs Temperature 97.8 F 02/21/20 17:46 Pulse Rate 58 L 02/21/20 17:46 Respiratory Rate 18 02/21/20 14:00 Blood Pressure 94/55 L 08/16/20 17:46 O2 Sat by Pulse Oximetry (%) 100 02/22/20 00:00 Constitutional: Yes: No Distress, Calm Cardiovascular: Yes: S1, S2 Respiratory: Yes: Regular, CTA Bilaterally Gastrointestinal: Yes: Normal Bowel Sounds, Soft Musculoskeletal: Yes: WNL Extremities: Yes: Other (swelling of the hands much better) Neurological: Yes: Alert, Oriented Psychiatric: Yes: Alert, Oriented Labs: CBC, BMP 02/22/20 11:10 02/22/20 11:10 Assessment/Plan patient with multiple medical issues,coming in with cellulitis of the arms rt is slightly worse this is due to her injecting Problem List - Problems (1) Cellulitis Code(s): L03.90 - CELLULITIS, UNSPECIFIED Qualifiers: Site of cellulitis: extremity Site of cellulitis of extremity: upper extremity Laterality: right Qualified Code(s): L03.113 - Cellulitis of right upper limb (2) Intravenous drug abuse Code(s): F19.10 - OTHER PSYCHOACTIVE SUBSTANCE ABUSE, UNCOMPLICATED (3) Alcohol use disorder Code(s): ZNW8390 - (4) Cocaine use disorder Code(s): F14.10 - COCAINE ABUSE, UNCOMPLICATED Assessment/Plan UE cellulitis IVDU HIV on HAART Substance abuse ETOH abuse plan can change abx to mg po bid for 5 more days rest as per the team avoid drug used
--- NOTE | 2020-02-22 14:04 | PN ---
Teaching Attending Note Name of Resident: Shaun Bautista ATTENDING PHYSICIAN STATEMENT I saw and evaluated the patient. I reviewed the resident's note and discussed the case with the resident. I agree with the resident's findings and plan as documented. SUBJECTIVE: Patient is doing better ,no fever or chills, would lije to go back to rehab. OBJECTIVE: Vital Signs Temperature 97.6 F 02/22/20 09:00 Pulse Rate 56 L 02/22/20 09:00 Respiratory Rate 18 02/22/20 09:00 Blood Pressure 100/56 L 02/22/20 09:00 O2 Sat by Pulse Oximetry (%) 98 02/22/20 09:00 PE; per resident's note CBCD WBC 3.5 K/mm3 (4.0-10.0) L 02/22/20 11:10 RBC 4.26 M/mm3 (3.60-5.2) 02/22/20 11:10 Hgb 11.7 GM/dL (10.7-15.3) 02/22/20 11:10 Hct 36.7 % (32.4-45.2) 02/22/20 11:10 MCV 86.1 fl (80-96) 02/22/20 11:10 MCHC 31.8 g/dl (32.0-36.0) L 02/22/20 11:10 RDW 15.1 % (11.6-15.6) 02/22/20 11:10 Plt Count 281 K/MM3 (134-434) 02/22/20 11:10 MPV 7.0 fl (7.5-11.1) L 02/22/20 11:10 CMP Sodium 136 mmol/L (136-145) 02/22/20 11:10 Potassium 4.5 mmol/L (3.5-5.1) 02/22/20 11:10 Chloride 100 mmol/L (98-107) 02/22/20 11:10 Carbon Dioxide 32 mmol/L (21-32) 02/22/20 11:10 Anion Gap 5 MMOL/L (8-16) L 02/22/20 11:10 BUN 17.5 mg/dL (7-18) 02/22/20 11:10 Creatinine 0.8 mg/dL (0.55-1.3) 02/22/20 11:10 Random Glucose 110 mg/dL (74-106) H 02/22/20 11:10 Calcium 8.7 mg/dL (8.5-10.1) 02/22/20 11:10 Total Bilirubin 0.3 mg/dL (0.2-1) 02/18/20 06:45 AST 20 U/L (15-37) 02/18/20 06:45 ALT 16 U/L (13-61) 02/18/20 06:45 Alkaline Phosphatase 69 U/L (45-117) 02/18/20 06:45 Total Protein 6.8 g/dl (6.4-8.2) 02/18/20 06:45 Albumin 2.6 g/dl (3.4-5.0) L 02/18/20 06:45 Current Medications Generic Name Dose Route Start Last Admin Trade Name Freq PRN Reason Stop Dose Admin Acetaminophen 650 mg 02/20/20 14:25 02/21/20 12:25 Tylenol - PO 650 mg Q4H PRN Administration PAIN LEVEL 6-10 Albuterol Sulfate 2 puff 02/17/20 20:44 02/20/20 11:47 Ventolin Hfa Inhaler - IH 2 puff Q4H PRN Administration SHORT OF BREATH/WHEEZING Elvitegravir/Cobicis/Emtricit/Tenof 1 tab 02/19/20 10:00 02/22/20 10:22 Genvoya (Non-Formulary) PO 1 tab DAILY MILAGROS Administration Enoxaparin Sodium 40 mg 02/18/20 10:00 02/22/20 10:22 Lovenox - SQ 40 mg DAILY MILAGROS Administration Ferrous Sulfate 325 mg 02/19/20 10:00 02/22/20 10:22 Feosol - PO 325 mg DAILY MILAGROS Administration Guaifenesin 600 mg 02/21/20 22:00 02/22/20 10:22 Mucinex - PO 600 mg BID MILAGROS Administration Piperacillin Sod/Tazobactam 50 mls @ 100 mls/hr 02/18/20 18:00 02/22/20 10:19 Sod 3.375 gm/ Dextrose IVPB 100 mls/hr Q8H-IV MILAGROS Administration Protocol Sodium Chloride 1,000 mls @ 150 mls/hr 02/22/20 08:45 02/22/20 10:18 Normal Saline - IV 02/22/20 15:24 150 mls/hr ASDIR MILAGROS Administration Methadone HCl 120 mg 02/19/20 10:00 02/22/20 06:54 Dolophine - PO 120 mg DAILY@0600 MILAGROS Administration Multivitamins/Minerals/Vitamin C 1 tab 02/19/20 10:00 02/22/20 10:22 Tab-A-Vit - PO 1 tab DAILY MILAGROS Administration Home Medications Medication Instructions Recorded Albuterol Sulfate Inhaler - 2 inh IH Q6H PRN 02/18/20 [Ventolin HFA Inhaler -] Budesonide/Formeterol Fumarate 2 inh IH BID PRN 02/18/20 [SYMBICORT 160/4.5mcg -] Clonidine HCl 0.3 mg PO BID 02/18/20 Elviteg/Cob/Emtri/Tenof Alafen 1 each PO DAILY 02/18/20 [Genvoya Tablet] Ferrous Sulfate 325 mg PO DAILY 02/18/20 Multivitamin 1 each PO DAILY 02/18/20 Amoxicillin/Potassium Clav 1 each PO BID 5 Days #10 tablet 02/22/20 [Augmentin 875-125 Tablet] Methadone [Dolophine -] 120 mg PO DAILY@0600 tablet 02/22/20 Microbiology 02/17/20 17:40 Blood - Peripheral Venous Blood Culture - Preliminary NO GROWTH OBTAINED AFTER 96 HOURS, INCUBATION TO CONTINUE FOR 1 DAYS. 02/17/20 17:40 Blood - Peripheral Venous Blood Culture - Preliminary NO GROWTH OBTAINED AFTER 96 HOURS, INCUBATION TO CONTINUE FOR 1 DAYS. 02/18/20 07:02 Urine - Urine Clean Catch Urine Culture - Final NO GROWTH OBTAINED CT of upper extremity without contrast: Subcutaneous edema and emphysema suspecious for cellulitis(pronounced within the right forearm), no evidence of abscess. old Chip fracture about distal left humerus ASSESSMENT AND PLAN: This patient is a 54yof with a PMHx Emphysema, T2Dm, HIV, HTN, admitted for having bl upper extremity cellulitis/IVDA (heroin/Crack)admits for injecting herself. 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
[2020-02-22 15:32] VITALS: BP 123/59; PULSE 61; TEMP 98
--- NOTE | 2020-02-22 17:42 | DS ---
Physical Exam: SUBJECTIVE: Patient seen and examined at bedside. 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 Patient reports no new complaints or symptoms. The patient reported that she wants to leave, saying that whatever the doctor says, she will be leaving today. The risks of leaving AMA was explained to the patient, including the possibility of worsening of her condition, amputation, or . The patient replied that she understands, but doesn't care. A few hours later, when the attending physician was in the room, the patient reported that she wants instead to be discharged to [facility]. OBJECTIVE: Vital Signs Period Temp Pulse Resp BP Sys/Herring Pulse Ox Last 24 Hr 97.6 F-98.0 F 56-61 18-18 94-123/55-59 98-100 PHYSICAL EXAM GENERAL: The patient is awake, alert, and fully oriented, in no acute distress. HEAD: Normal with no signs of trauma. EYES: Extraocular movements intact. No ptosis. ENT: Ears normal, nares patent, oropharynx clear without exudates, moist mucous membranes. Mild to minimal posterior pharynx erythema and no tonsular exudates seen. NECK: Trachea midline, full range of motion, supple. LUNGS: Breath sounds equal, clear to auscultation bilaterally, no wheezes, no crackles, no accessory muscle use. HEART: Regular rate and rhythm, S1, S2. ABDOMEN: Soft, nontender, nondistended, normoactive bowel sounds, no guarding, no rebound, no masses. EXTREMITIES: 2+ pulses, warm, well-perfused, no edema. NEUROLOGICAL: Normal speech, gait not observed. PSYCH: Normal mood, normal affect. SKIN: Warm, dry, normal turgor. Swelling and hyperpigmentation on arms bilaterally nontender to touch. Track ness bilaterally on arms. LABS Laboratory Results - last 24 hr 02/22/20 02/22/20 11:10 11:10 WBC 3.5 L RBC 4.26 Hgb 11.7 Hct 36.7 MCV 86.1 MCH 27.4 MCHC 31.8 L RDW 15.1 Plt Count 281 MPV 7.0 L Sodium 136 Potassium 4.5 Chloride 100 Carbon Dioxide 32 Anion Gap 5 L BUN 17.5 Creatinine 0.8 Est GFR (CKD-EPI)AfAm 96.87 Est GFR (CKD-EPI)NonAf 83.58 Random Glucose 110 H Calcium 8.7 HOSPITAL COURSE: Date of Admission:02/17/20 54 year old female patient with past medical history that includes HIV on Genvoya, IVDA of heroine and cocaine on methadone, and , who presented to the ED with bilateral upper extremity swelling. CT of her upper extremities showed subcutaneous edema and emphysema suspicious for cellulitis. A systolic murmur was heard on heart auscultation, so an ECHO was ordered to rule out endocarditis. ECHO was negative for endocarditis. She received antibiotics Vancomycin and Zosyn during her hospital stay (as well as her Genvoya 1 tab daily and Methadone 120mg daily, which was confirmed that she receives it). Cellulitis of the hands looked much better by the end of the hospital admission. The patient then requested to be discharged to [facility]. Patient was discharged to [facility]. Date of Discharge: 02/22/20 Minutes to complete discharge: 40 Discharge Summary Problems reviewed: Yes Reason For Visit: CELLULITIS Condition: Stable - Instructions Diet, Activity, Other Instructions: In Czech: You were admitted to the hospital because of swelling of your arms. You were evaluated with lab work, blood work, and imaging including a CAT scan of your arms. Based on the evaluation, your arms were infected. We treated you with medications, including antibiotics. Recommendation Please do not do any drugs, and avoid IV drug use, to prevent this problem from recurring. Drug use can damage your whole body, including your brain, heart, and organs. Imaging Findings The following imaging findings were found during your hospital stay: The CAT scan of your arms found a possible old chip fracture about your left elbow region. An ECHO of your heart did not find any significant abnormalities. Medications Please take Augmetin 1 tablet twice per day by mouth (one tablet in the morning and one tablet at night) for the next five days (last tablet will be on the evening of February 27 2020) Please continue all of your medications as prescribed. Follow ups Please follow up with the Infectious Disease physician, Dr. Carmen Coy, within 1 week regarding the cellulitis of your arms. Please follow up with your Primary Care physician, or the Primary Care physician we have provided for you Dr. Curt Hollins, within 2 weeks. If you experience worsening symptoms, chest pain, shortness of breath, abdominal pain, or worsening of your condition, please come to the emergency room or call 911. En Espaol: Fue ingresado en el hospital debido a la hinchazn de maribel brazos. Lo evaluaron con anlisis de laboratorio, anlisis de massiel e imgenes, incluida franklin tomografa computarizada de los brazos. Segn la evaluacin, maribel brazos estaban infectados. Lo tratamos con medicamentos, incluidos antibiticos. Recomendacin Por favor, no consuma ningn medicamento y evite el uso de drogas intravenosas para evitar que sharon problema vuelva a ocurrir. El consumo de drogas puede daar todo el cuerpo, incluidos el cerebro, el corazn y los rganos. Hallazgos de imgenes Se encontraron los siguientes hallazgos de imgenes jessica bray estada en el hospital: La tomografa computarizada de maribel brazos encontr franklin posible fractura de chip alberto alrededor de la regin del codo rissa. Un ECHO de bray corazn no encontr ninguna anomala significativa. Medicamentos Contine con todos maribel medicamentos segn lo recetado. Seguimientos Anshul un seguimiento con el mdico de enfermedades infecciosas, el Dr. Carmen Coy, dentro de 1 semana con respecto a la celulitis de maribel brazos. Anshul un seguimiento con bray mdico de atencin primaria o con el mdico de atencin primaria que le hemos proporcionado, el Dr. Curt Hollins, en un plazo de 2 semanas. Si experimenta un empeoramiento de los sntomas, dolor en el pecho, dificultad para respirar, dolor abdominal o empeoramiento de bray afeccin, acuda a la bette de emergencias o llame al 911. Referrals: Carmen Coy MD [Staff Physician] - 1 Week (Bilateral Upper Extremity Cellulitis) Curt Hollins MD [Staff Physician] - 2 Weeks Disposition: I.P. ALCOHOL/SUBS ABUSE REHAB - Home Medications Comprehensive Discharge Medication List: Ambulatory Orders Albuterol Sulfate Inhaler - [Ventolin HFA Inhaler -] 2 inh IH Q6H PRN 02/18/20 Budesonide/Formeterol Fumarate [SYMBICORT 160/4.5mcg -] 2 inh IH BID PRN 02/18/20 Clonidine HCl 0.3 mg PO BID 02/18/20 Elviteg/Cob/Emtri/Tenof Alafen [Genvoya Tablet] 1 each PO DAILY 02/18/20 Ferrous Sulfate 325 mg PO DAILY 02/18/20 Multivitamin 1 each PO DAILY 02/18/20 Amoxicillin/Potassium Clav [Augmentin 875-125 Tablet] 1 each PO BID 5 Days #10 tablet 02/22/20 Methadone [Dolophine -] 120 mg PO DAILY@0600 tablet 02/22/20 This patient is new to me today: No Emergency Visit: Yes ED Registration Date: 02/17/20 Care time: The patient presented to the Emergency Department on the above date and was hospitalized for further evaluation of their emergent condition. Critical Care patient: No - Discharge Referral Referred to [facility] No ATTENDING PHYSICIAN STATEMENT I saw and evaluated the patient. I reviewed the resident's note and discussed the case with the resident. I agree with the resident's findings and plan as documented. SUBJECTIVE: OBJECTIVE: ASSESSMENT AND PLAN:
== END 2020-02-22 16:21 | disposition other institution (70) | DRG 383 ==
LOC: JER 16:47 → JERBED 18:29 → J8W 02-18 00:07
PROVIDERS: ADMIT Internal Medicine; ATTEND Internal Medicine
DX: L03.114 Cellulitis of left upper limb (principal); R01.1 Cardiac murmur, unspecified; R73.03 Prediabetes; I10 Essential (primary) hypertension; J45.909 Unspecified asthma, uncomplicated; F17.210 Nicotine dependence, cigarettes, uncomplicated; Z21 Asymptomatic human immunodeficiency virus [HIV] infection status; L03.113 Cellulitis of right upper limb; J43.9 Emphysema, unspecified; Z68.26 Body mass index [BMI] 26.0-26.9, adult; E46 Unspecified protein-calorie malnutrition; F14.20 Cocaine dependence, uncomplicated; F11.20 Opioid dependence, uncomplicated; D72.829 Elevated white blood cell count, unspecified; E88.09 Other disorders of plasma-protein metabolism, not elsewhere classified
CPT/HCPCS: 36415; 71046-TC-FY; 73200-TC-RT; 73562-TC-LT-FY; 80048; 80053; 81003; 82962; 83036; 83735; 84100; 85025; 85027; 87040; 87086; 87389; 93005; 93010; 93306-TC; 97116-GP; 97161-GP; 99285-25; U0003

== ENCOUNTER 2020-02-22 16:41 | Inpatient (IN) | payer OTHER ==
--- NOTE | 2020-02-22 20:50 | HP ---
CIWA Score Nausea/Vomitin-No Nausea/No Vomiting Muscle Tremors: None Anxiety: 1-Mildly Anxious Agitation: 1-Slight > Activity Paroxysmal Sweats: No Perspiration Orientation: 0-Oriented Tacttile Disturbances: 0-None Auditory Disturbances: 0-None Visual Disturbances: 0-None Headache: 0-None Present CIWA-Ar Total Score: 2 - Admission Criteria OASAS Guidelines: Admission for Medically Managed Detox: Requires at least one of the followin. CIWA greater than 12 2. Seizures within the past 24 hours 3. Delirium tremens within the past 24 hours 4. Hallucinations within the past 24 hours 5. Acute intervention needed for co occurring medical disorder 6. Acute intervention needed for co occurring psychiatric disorder 7. Severe withdrawal that cannot be handled at a lower level of care (continued vomiting, continued diarrhea, abnormal vital signs) requiring intravenous medication and/or fluids 8. Admitting History and Physical - Past Medical History Cardiovascular: Yes: HTN Pulmonary: Yes: COPD ...LMP: 02/10/20 Infectious Disease: Yes: HIV - Smoking History Smoking history: Current every day smoker Have you smoked in the past 12 months: Yes Aproximately how many cigarettes per day: 12 Admission [facility] Allergies/Adverse Reactions: Allergies Allergy/AdvReac Type Severity Reaction Status Date / Time No Known Allergies Allergy Verified 02/22/20 22:23 History of Present Illness: 54 y.o. female w/ etoh use, returns after hospitalization 02/17/2020- 02/22/2020 for cellulitis UE tx w/ IV Zosyn PMHX : pre-DM , htn , asthma, HIV ( [facility] ) PSHx ; C-sx x 1 Psych : [facility] d/c : " CT of upper extremity without contrast: Subcutaneous edema and emphysema suspecious for cellulitis(pronounced within the right forearm), no evidence of abscess. old Chip fracture about distal left humerus 54yof with a PMHx Emphysema, T2Dm, HIV, HTN, admitted for having bl upper extremity cellulitis/IVDA (heroin/Crack) # Acute over chronic Upper extremity cellulitis/IVDA: On IV zosyn continue ,switched to po Augmentin and will dc back to rehab assisted, was accpted by dr Vargas and discussed with ID , echo: no endocarditis #Polysubstance abuse: discussed abstinence # Hypertension: SBP is 105, not on any meds #HIV meds: On Genveya continue on Methadone: verified by the nurse, continue with methadone 120mg daily " Exam Limitations: No Limitations - Review of Systems Constitutional: No Symptoms Reported EENT: reports: Other (glasses , missing upper teeth) Respiratory: reports: Orthopnea (intermittent) Cardiac: reports: No Symptoms Reported GI: reports: No Symptoms Reported : reports: No Symptoms Reported Musculoskeletal: reports: No Symptoms Reported Integumentary: reports: See HPI, Other ( IV use UE / LE) Neuro: reports: Unsteady Gait Endocrine: reports: No Symptoms Reported Hematology: reports: No Symptoms Reported Psychiatric: reports: Mood/Affect Appropiate, Orientated x3 Patient History - Patient Medical History Hx Asthma: Yes Hx Chronic Obstructive Pulmonary Disease (COPD): No Hx Diabetes: Yes (prediabetic) Hx Human Immunodeficiency Virus (HIV): Yes - Reproductive History Last Menstrual Period: 02/10/20 - Smoking Cessation Smoking history: Current every day smoker Have you smoked in the past 12 months: Yes Aproximately how many cigarettes per day: 12 Initiated information on smoking cessation: Yes 'Breaking Loose' booklet given: 02/22/20 - Substances abused Alcohol Frequency: Daily Amount used: LIQUOR- 2 PTS, RUM- 2 LITRES Age of first use: 13 Date of last use: 02/15/20 Admission Physical Exam S - Physical General Appearance: Yes: No Apparent Distress HEENTM: Yes: EOMI, Hearing grossly Normal, Normocephalic, Muffled/Hoarse Voice, Other (upper teeth - missing) Respiratory: Yes: Chest Non-Tender, Lungs Clear, Decreased Breath Sounds, No Respiratory Distress, No Accessory Muscle Use Neck: Yes: No masses,lesions,Nodules, Trachea in good position Cardiology: Yes: Regular Rhythm, Regular Rate, S1, S2 Abdominal: Yes: Non Tender, Soft Back: Yes: Normal Inspection Musculoskeletal: Yes: Other (unsteady gait .) Extremities: Yes: Normal Range of Motion, Non-Tender Neurological: Yes: Fully Oriented, Alert, Motor Strength 5/5 Integumentary: Yes: Warm, Pitting Edema, Track Fagan (marry UE / LE) - Diagnostic (1) Alcohol use disorder Current Visit: Yes Status: Chronic (2) Cocaine use disorder Current Visit: Yes Status: Chronic (3) Opioid dependence on agonist therapy Current Visit: Yes Status: Chronic Breathalyzer - Breathalyzer Breathalyzer: 0 Urine Drug Screen - Test Device Lot number: [id number] Expiration date: 02/08/22 - Control Is test valid?: Yes - Results Drug screen NEGATIVE: No Urine drug screen results: RAIZA-Cocaine, FEN-Fentanyl, MOP-Opiates, MTD-Methadone Inpatient Rehab Admission - Rehab Decision to Admit Inpatient rehab admission?: No
[2020-02-22] MEDS ORDERED: ALBUTEROL SO4 HFA INHALER IH PRN (20:53)
[2020-02-22] MEDS ORDERED: MAGNESIUM CITRATE 300 ML BOTTLE PO PRN (20:56)
[2020-02-22] MEDS ORDERED: MAGNESIUM HYDROX 2400MG/30ML ORAL SUSPENSION 30 ML CUP PO PRN (20:56)
[2020-02-22] MEDS ORDERED: P-EPHED 60MG/TRIPROLIDI 2.5MG TABLET PO PRN (20:56)
[2020-02-22] MEDS ORDERED: LOPERAMIDE HCL 2 MG CAPSULE PO PRN (20:56)
[2020-02-22] MEDS ORDERED: MAG HYDROX/AL HYDROX/SIMETH 30 ML UNIT-DOSE CUP PO PRN (20:56)
[2020-02-22] MEDS ORDERED: NICOTINE POLACRILEX 2 MG GUM BC PRN (20:56)
[2020-02-22] MEDS ORDERED: ACETAMINOPHEN 325 MG TABLET (FP) PO PRN (20:56)
[2020-02-22] MEDS ORDERED: guaiFENesin 200 MG/10 ML 10 ML UNIT-DOSE CUPS PO PRN (20:56)
[2020-02-22] MEDS ORDERED: MINERAL OIL/PETROLAT/WATER TOPICAL CREAM 113 GM JAR TP PRN (20:58)
[2020-02-22 22:38] VITALS: BMI 26.6
[2020-02-22] MEDS: AMOX TR/POT CLAV 875MG/125MG TABLETS (FP) PO SCH (23:21)
[2020-02-22] MEDS: BUDESONIDE/FORMETEROL FUMARATE 160/4.5 mcg INHALER IH SCH (23:23)
[2020-02-22] MEDS: THIAMINE HCL 100 MG TABLET (FP) PO SCH (23:24)
[2020-02-23] MEDS: METHADONE HCL 40 MG DISPERSABLE TABLET PO SCH (06:22)
[2020-02-23] MEDS ORDERED: PATIENT'S OWN MEDICATION (NON-FORMULARY) (Ferrous Sulfate [Ferrous Sulfate] 325 MG) PO SCH (10:00)
[2020-02-23] MEDS: FERROUS SO4 325 MG TABLET (FP) PO SCH (10:38)
[2020-02-23] MEDS: PRENATAL VITAMINS W/ FOLIC ACID TABLET (FP) PO SCH (10:38)
[2020-02-23] MEDS: AMOX TR/POT CLAV 875MG/125MG TABLETS (FP) PO SCH ×2 (10:38→21:34)
[2020-02-23] MEDS: ELVITEG/COB/EMTRI/TENOF (GENVOYA) TABLET (NF) PO SCH (10:38)
[2020-02-23] MEDS: BUDESONIDE/FORMETEROL FUMARATE 160/4.5 mcg INHALER IH SCH ×3 (10:38→21:34)
[2020-02-23] MEDS: hydrOXYzine PAMOATE 25 MG CAPSULE (FP) PO PRN (10:40)
[2020-02-23] MEDS: MULTIVITAMINS (DAILY MVI) TABLET (FP) PO SCH (11:07)
[2020-02-23] MEDS ORDERED: MASKS NR ONE (18:42)
[2020-02-23] MEDS ORDERED: PT OWN MED DRAWER 7, Y5N ONE (18:48)
[2020-02-23] MEDS: THIAMINE HCL 100 MG TABLET (FP) PO SCH (21:34)
[2020-02-24] MEDS: hydrOXYzine PAMOATE 25 MG CAPSULE (FP) PO PRN (01:57)
[2020-02-24] MEDS: METHADONE HCL 40 MG DISPERSABLE TABLET PO SCH (06:45)
[2020-02-24] MEDS: ELVITEG/COB/EMTRI/TENOF (GENVOYA) TABLET (NF) PO SCH (07:05)
[2020-02-24] MEDS ORDERED: PT OWN MED DRAWER 7, Y5N ONE ×3 (08:59→18:42)
[2020-02-24] MEDS: AMOX TR/POT CLAV 875MG/125MG TABLETS (FP) PO SCH ×2 (10:30→21:38)
[2020-02-24] MEDS: FERROUS SO4 325 MG TABLET (FP) PO SCH (10:30)
[2020-02-24] MEDS: PRENATAL VITAMINS W/ FOLIC ACID TABLET (FP) PO SCH (10:30)
[2020-02-24] MEDS: BUDESONIDE/FORMETEROL FUMARATE 160/4.5 mcg INHALER IH SCH ×2 (10:31→21:39)
[2020-02-24] MEDS: MULTIVITAMINS (DAILY MVI) TABLET (FP) PO SCH (14:39)
[2020-02-24] MEDS ORDERED: ACETAMINOPHEN 325 MG TABLET (FP) PO PRN (15:29)
[2020-02-24] MEDS ORDERED: SODIUM CHLORIDE NASAL SPRAY 44 ML BOTTLE NS PRN (15:32)
[2020-02-24] MEDS: LIDOCAINE 5% TOPICAL PATCH TP SCH (16:05)
[2020-02-24] MEDS: PANTOPRAZOLE 40 MG TABLET PO SCH (16:06)
[2020-02-24 17:52] LABS: URINE APPEARANCE CLEAR; URINE BILIRUBIN NEGATIVE (NEGATIVE); URINE COLOR YELLOW; URINE GLUCOSE (UA) NEGATIVE (NEGATIVE); URINE KETONE NEGATIVE (NEGATIVE); URINE LEUK ESTERASE NEGATIVE (NEGATIVE); URINE NITRITE NEGATIVE (NEGATIVE); URINE PROTEIN NEGATIVE (NEGATIVE); URINE UROBILINOGEN 0.2 mg/dL (0.2-1.0)
[2020-02-24] MEDS: IBUPROFEN 400 MG TABLET (FP) PO PRN (19:01)
[2020-02-24] MEDS ORDERED: TUBERCULIN PPD 5 TU/0.1ML VIAL ID ONE (20:19)
[2020-02-24] MEDS: LIDOCAINE PATCH REMOVAL MC SCH (21:38)
[2020-02-24] MEDS: THIAMINE HCL 100 MG TABLET (FP) PO SCH (21:38)
[2020-02-24] MEDS: METHYL SALICYLATE/MENTHOL OINT 30 GM TUBE TP SCH (21:39)
[2020-02-25] MEDS: METHADONE HCL 40 MG DISPERSABLE TABLET PO SCH (06:25)
[2020-02-25] MEDS: ELVITEG/COB/EMTRI/TENOF (GENVOYA) TABLET (NF) PO SCH (06:59)
[2020-02-25] MEDS: PRENATAL VITAMINS W/ FOLIC ACID TABLET (FP) PO SCH (10:26)
[2020-02-25] MEDS: BUDESONIDE/FORMETEROL FUMARATE 160/4.5 mcg INHALER IH SCH ×2 (10:26→21:23)
[2020-02-25] MEDS: PANTOPRAZOLE 40 MG TABLET PO SCH (10:27)
[2020-02-25] MEDS: FERROUS SO4 325 MG TABLET (FP) PO SCH (10:27)
[2020-02-25] MEDS: hydrOXYzine PAMOATE 25 MG CAPSULE (FP) PO PRN (10:27)
[2020-02-25] MEDS: LIDOCAINE 5% TOPICAL PATCH TP SCH (10:27)
[2020-02-25] MEDS ORDERED: PT OWN MED DRAWER 7, Y5N ONE ×2 (10:29→19:18)
[2020-02-25] MEDS: AMOX TR/POT CLAV 875MG/125MG TABLETS (FP) PO SCH ×2 (10:46→21:21)
[2020-02-25] MEDS ORDERED: PNEUMOC 13-VAL CONJ-DIP CRM/PF 0.5 ML DISP.SYRIN IM ONE (12:00)
[2020-02-25] MEDS: METHYL SALICYLATE/MENTHOL OINT 30 GM TUBE TP SCH (21:21)
[2020-02-25] MEDS: THIAMINE HCL 100 MG TABLET (FP) PO SCH (21:22)
[2020-02-25] MEDS: MELATONIN 5 MG TABLETS PO PRN (21:22)
[2020-02-25] MEDS: LIDOCAINE PATCH REMOVAL MC SCH (21:23)
[2020-02-26] MEDS ORDERED: PT OWN MED DRAWER 7, Y5N ONE ×4 (06:07→19:57)
[2020-02-26] MEDS: METHADONE HCL 40 MG DISPERSABLE TABLET PO SCH (06:16)
[2020-02-26] MEDS: ELVITEG/COB/EMTRI/TENOF (GENVOYA) TABLET (NF) PO SCH (07:36)
[2020-02-26] MEDS: FERROUS SO4 325 MG TABLET (FP) PO SCH (10:04)
[2020-02-26] MEDS: AMOX TR/POT CLAV 875MG/125MG TABLETS (FP) PO SCH ×2 (10:04→21:24)
[2020-02-26] MEDS: PRENATAL VITAMINS W/ FOLIC ACID TABLET (FP) PO SCH (10:05)
[2020-02-26] MEDS: PANTOPRAZOLE 40 MG TABLET PO SCH (10:06)
[2020-02-26] MEDS: BUDESONIDE/FORMETEROL FUMARATE 160/4.5 mcg INHALER IH SCH ×2 (10:07→21:25)
[2020-02-26] MEDS: LIDOCAINE 5% TOPICAL PATCH TP SCH (10:07)
--- NOTE | 2020-02-26 10:32 | PN ---
S Progress Note Note: Pt is a 54 y/o female admitted to rehab on 02/22/20 after clearance from [facility] for bilateral forearm swelling. Pt is being Treated with Antibiotics, Augmentin 875 mg po BID x 10 days(last dose 02/27/20) . On Methadone 120 mg po daily with [facility]. Pt is Urdu speaking with limited communication in Malay language. Highly anxious pt and sometimes argumentative. Pt has been counselled by cable worker helper on behavior modification. PMHx:Asthma,Emphysema,?Pre-DM-pt denies,HIV+([facility]), HTN PSxH: many years ago Psych Hx:Denies Vital Signs - 24 hr 02/25/20 02/25/20 02/26/20 14:52 20:38 07:14 Temperature 98 F Pulse Rate 58 L Respiratory 18 Rate Blood Pressure 122/67 O2 Sat by Pulse 98 100 100 Oximetry (%) Laboratory Tests 02/22/20 02/24/20 02/26/20 21:42 10:00 10:32 POC Glucometer 117 Urine Color Yellow Urine Appearance Clear Urine pH 7.0 Ur Specific [place] 1.016 Urine Protein Negative Urine Glucose (UA) Negative Urine Ketones Negative Urine Blood Negative Urine Nitrite Negative Urine Bilirubin Negative Urine Urobilinogen 0.2 Ur Leukocyte Esterase Negative POC Urine HCG, Qual Negative HgbA1C= 5.9 on 02/18/20 BGM nonfasting today 117mg/dl Alert o x 3 nad oob ambulating with steady gait Rehab pt Cont tx Ensure plus 1 can po bid follow up with pcp after discharge for medical management.
--- NOTE | 2020-02-26 16:43 | CONSULT ---
[facility] Psychiatric Consult - Data Date of interview: 02/26/20 Admission source: [facility] Identifying data: Patient is a 54 year old single Wallisian female, mother of three, unemployed, homeless, and is supported by [facility]. This is one of multiple admissions for patient ( states last admission was approximately 20 years ago). Patient admitted to rehab for alcohol, cocaine, and opiate dependence. Substance Abuse History: - Smoking Cessation. Smoking history: Current every day smoker. Have you smoked in the past 12 months: Yes. Aproximately how many cigarettes per day: 12. Initiated information on smoking cessation: Yes. 'Breaking Loose' booklet given: 02/22/20. - Substances abused. Alcohol. Frequency: Daily. Amount used: LIQUOR- 2 PTS, RUM- 2 LITRES. Age of first use: 13. Date of last use: 02/15/20 Medical History: HTN, COPD, HIV Psychiatric History: Patient's first psychiatric contact was at 7 years of age at outpatient clinic due to behavior issues. Patient unsure if medications were prescribed. Ms. Vazquez reports a history of two psychiatric hospitalizations. At 16 years of age she was hospitalized at [facility] due to a suicide attempt via overdose and at 33 years of age she was hospitalized at another unknown facility for depression and suicide attempt via overdose. Patient reports a past diagnosis of Depression, schizophrenia, anxiety disorder and bipo lar disorder. Past history of mood instability and auditory hallucinations although states that she has not heard voices in years. Patient states that her last psychiatric contact was at an outpatient clinic in [place], [place] in which she was prescribed xanax + ambien. Patient unable to state other psychotropic medication that has been prescribed to her. Ms. Vazquez is unable to provide a clear cohesive psychiatric history. Patient is not interested in accepting medications. She denies auditory/ visual hallucinations, suicidal/ homicidal ideation. Physical/Sexual Abuse/Trauma History: denies. Mental Status Exam - Mental Status Exam Alert and Oriented to: Time, Place, Person Cognitive Function: Fair Patient Appearance: Disheveled Mood: Withdrawn Affect: Mood Congruent Patient Behavior: Cooperative (superfically cooperative.) Speech Pattern: Appropriate (Mainly guyanese speaking) Voice Loudness: Normal Thought Process: Goal Oriented Hallucinations: Denies Suicidal Ideation: Denies Homicidal Ideation: Denies Sleep: Fair Appetite: Fair Muscle strength/Tone: Normal Gait/Station: Normal Psychiatric Findings - Problem List ([place] 1, 2,3) (1) Bipolar disorder Status: Chronic (2) Alcohol use disorder Status: Chronic (3) Cocaine use disorder Status: Chronic (4) Opioid dependence on agonist therapy Status: Chronic (5) Substance induced mood disorder Status: Acute (6) Schizoaffective disorder Status: Suspected - Initial Treatment Plan Initial Treatment Plan: Psychoeducation provided. Rehab in progress. Patient refusing to accept psychotropic medication. Observation.
[2020-02-26] MEDS: IBUPROFEN 400 MG TABLET (FP) PO PRN (16:56)
[2020-02-26] MEDS: METHYL SALICYLATE/MENTHOL OINT 30 GM TUBE TP SCH (21:24)
[2020-02-26] MEDS: LIDOCAINE PATCH REMOVAL MC SCH (21:25)
[2020-02-26] MEDS: THIAMINE HCL 100 MG TABLET (FP) PO SCH (21:25)
[2020-02-27] MEDS: METHADONE HCL 40 MG DISPERSABLE TABLET PO SCH (06:05)
[2020-02-27] MEDS: ELVITEG/COB/EMTRI/TENOF (GENVOYA) TABLET (NF) PO SCH (07:27)
[2020-02-27] MEDS ORDERED: PT OWN MED DRAWER 7, Y5N ONE ×3 (07:28→19:21)
[2020-02-27] MEDS: FERROUS SO4 325 MG TABLET (FP) PO SCH (09:40)
[2020-02-27] MEDS: PANTOPRAZOLE 40 MG TABLET PO SCH (09:40)
[2020-02-27] MEDS: LIDOCAINE 5% TOPICAL PATCH TP SCH (09:40)
[2020-02-27] MEDS: AMOX TR/POT CLAV 875MG/125MG TABLETS (FP) PO SCH (09:42)
[2020-02-27] MEDS: BUDESONIDE/FORMETEROL FUMARATE 160/4.5 mcg INHALER IH SCH ×2 (09:42→21:14)
[2020-02-27] MEDS: PRENATAL VITAMINS W/ FOLIC ACID TABLET (FP) PO SCH (09:43)
[2020-02-27] MEDS: LIDOCAINE PATCH REMOVAL MC SCH (21:15)
[2020-02-27] MEDS: METHYL SALICYLATE/MENTHOL OINT 30 GM TUBE TP SCH (21:15)
[2020-02-27] MEDS: THIAMINE HCL 100 MG TABLET (FP) PO SCH (21:15)
[2020-02-28] MEDS: MELATONIN 5 MG TABLETS PO PRN ×2 (01:49→21:19)
[2020-02-28] MEDS: METHADONE HCL 40 MG DISPERSABLE TABLET PO SCH (06:30)
[2020-02-28] MEDS: ELVITEG/COB/EMTRI/TENOF (GENVOYA) TABLET (NF) PO SCH (07:00)
[2020-02-28] MEDS ORDERED: PT OWN MED DRAWER 7, Y5N ONE ×2 (08:56→19:01)
[2020-02-28] MEDS: LIDOCAINE 5% TOPICAL PATCH TP SCH (10:04)
[2020-02-28] MEDS: PANTOPRAZOLE 40 MG TABLET PO SCH (10:04)
[2020-02-28] MEDS: PRENATAL VITAMINS W/ FOLIC ACID TABLET (FP) PO SCH (10:04)
[2020-02-28] MEDS: FERROUS SO4 325 MG TABLET (FP) PO SCH (10:04)
[2020-02-28] MEDS: BUDESONIDE/FORMETEROL FUMARATE 160/4.5 mcg INHALER IH SCH ×2 (10:05→21:19)
[2020-02-28] MEDS: THIAMINE HCL 100 MG TABLET (FP) PO SCH (21:18)
[2020-02-28] MEDS: LIDOCAINE PATCH REMOVAL MC SCH (21:19)
[2020-02-28] MEDS: METHYL SALICYLATE/MENTHOL OINT 30 GM TUBE TP SCH (21:57)
[2020-02-29] MEDS ORDERED: PT OWN MED DRAWER 7, Y5N ONE (03:06)
[2020-02-29] MEDS: METHADONE HCL 40 MG DISPERSABLE TABLET PO SCH (06:22)
[2020-02-29 07:04] VITALS: BP 111/63; PULSE 61; TEMP 97.8
[2020-02-29] MEDS: ELVITEG/COB/EMTRI/TENOF (GENVOYA) TABLET (NF) PO SCH (07:17)
[2020-02-29] MEDS: PRENATAL VITAMINS W/ FOLIC ACID TABLET (FP) PO SCH (09:43)
[2020-02-29] MEDS: LIDOCAINE 5% TOPICAL PATCH TP SCH (09:43)
[2020-02-29] MEDS: PANTOPRAZOLE 40 MG TABLET PO SCH (09:43)
[2020-02-29] MEDS: FERROUS SO4 325 MG TABLET (FP) PO SCH (09:43)
[2020-02-29] MEDS: BUDESONIDE/FORMETEROL FUMARATE 160/4.5 mcg INHALER IH SCH (09:45)
--- NOTE | 2020-02-29 11:09 | PN ---
[facility] Progress Note Note: Patient c/o dry, cracked skin to bottom of bilateral feet. Vital Signs Temperature 97.8 F 02/29/20 06:30 Pulse Rate 61 02/29/20 06:30 Respiratory Rate 18 02/29/20 06:30 Blood Pressure 111/63 02/29/20 06:30 O2 Sat by Pulse Oximetry (%) 100 02/29/20 06:30 Laboratory Tests 02/22/20 02/24/20 02/25/20 21:42 10:00 18:00 POC Glucometer Urine Color Yellow Urine Appearance Clear Urine pH 7.0 Ur Specific [place] 1.016 Urine Protein Negative Urine Glucose (UA) Negative Urine Ketones Negative Urine Blood Negative Urine Nitrite Negative Urine Bilirubin Negative Urine Urobilinogen 0.2 Ur Leukocyte Esterase Negative POC Urine HCG, Qual Negative COVID-19 ([facility]LAKE) Not detected 02/26/20 10:32 POC Glucometer 117 Urine Color Urine Appearance Urine pH Ur Specific [place] Urine Protein Urine Glucose (UA) Urine Ketones Urine Blood Urine Nitrite Urine Bilirubin Urine Urobilinogen Ur Leukocyte Esterase POC Urine HCG, Qual COVID-19 ([facility]LAKE) PE alert and oriented x 3 skin warm and dry bilateral plantar aspect of feet with dry, cracked skin toenails onchomycotic no open areas, lesions A/P athlete's foot will start tinactin cr bid
--- NOTE | 2020-02-29 12:33 | DS ---
[facility] Rehab Discharge Summary - [facility] Rehab Discharge Summary Admission Date: 02/22/20 Discharge Date: 02/29/20 - History Present History: Alcohol dependence, Cocaine dependence, MMTP - Discharge Physical Exam Vital Signs: Vital Signs Temperature 97.8 F 02/29/20 06:30 Pulse Rate 61 02/29/20 06:30 Respiratory Rate 18 02/29/20 06:30 Blood Pressure 111/63 02/29/20 06:30 O2 Sat by Pulse Oximetry (%) 100 02/29/20 06:30 Laboratory Tests 02/22/20 02/24/20 02/25/20 21:42 10:00 18:00 POC Glucometer Urine Color Yellow Urine Appearance Clear Urine pH 7.0 Ur Specific [place] 1.016 Urine Protein Negative Urine Glucose (UA) Negative Urine Ketones Negative Urine Blood Negative Urine Nitrite Negative Urine Bilirubin Negative Urine Urobilinogen 0.2 Ur Leukocyte Esterase Negative POC Urine HCG, Qual Negative COVID-19 ([facility]LAKE) Not detected 02/26/20 10:32 POC Glucometer 117 Urine Color Urine Appearance Urine pH Ur Specific [place] Urine Protein Urine Glucose (UA) Urine Ketones Urine Blood Urine Nitrite Urine Bilirubin Urine Urobilinogen Ur Leukocyte Esterase POC Urine HCG, Qual COVID-19 ([facility]LAKE) ROS: DENIES SHAKES, SWEATS, HEADACHE, ALCOHOL CRAVINGS AND SI/HI. PATIENT CONTINUES TO NOT ADHERE TO MASK POLICY DESPITE EDUCATION AND INTERVENTION BY STAFF. PE: ALERT AND ORIENTED X 3 SKIN WARM AND DRY IN NAD EXT FULL ROM, AMD AD ALIREZA NO TREMORS DENIES SI/HI A/P ALCOHOL DEPENDENCE MMTP COCAINE DEPENDENCE NONCOMPLIANCE WITH MASK POLICY PATIENT IS MEDICALLY STABLE FOR DISCHARGE AND WOULD BENEFIT FROM OUTPATIENT SETTING. AFTERCARE ARRANGED FOR SHILA CANELA, TEJINDER 03/01/2020 AT 9AM - Treatment Discharge Condition: Discharge condition good - Medication Discharge Medications: Ambulatory Orders Albuterol Sulfate Inhaler - [Ventolin HFA Inhaler -] 2 inh IH Q6H PRN 02/18/20 Budesonide/Formeterol Fumarate [SYMBICORT 160/4.5mcg -] 2 inh IH BID PRN 02/18/20 Clonidine HCl 0.3 mg PO BID 02/18/20 Elviteg/Cob/Emtri/Tenof Alafen [Genvoya Tablet] 1 each PO DAILY 02/18/20 Ferrous Sulfate 325 mg PO DAILY 02/18/20 Multivitamin 1 each PO DAILY 02/18/20 Amoxicillin/Potassium Clav [Augmentin 875-125 Tablet] 1 each PO BID 5 Days #10 tablet 02/22/20 Methadone [Dolophine -] 120 mg PO DAILY@0600 tablet 02/22/20 - Medication-Assisted Treatment (MAT) Medication-Assisted Treatment (MAT): Yes MAT Follow-up Referral: MMTP - Discharge Instructions Diet, activity, other medical instructions: Diet: REG TOLERATED Activity: AMB AD ALIREZA TOLERATED Other medical instructions: F/U WITH PCP RECOMMENDED - Follow-up Referral Minutes to complete discharge: 45 - AMA Did Patient Leave Against Medical Advice: No
[2020-02-29] MEDS ORDERED: TOLNAFTATE 1% CREAM 15 GM TUBE TP SCH (22:00)
== END 2020-02-29 13:15 | disposition home or self-care (01) | DRG 772 ==
LOC: YASAS 16:41 → Y3W 22:10 → Y3E 02-25 14:23
PROVIDERS: ADMIT Allergy & Immunology; ATTEND Allergy & Immunology
PROC: HZ42ZZZ Group Counseling for Substance Abuse Treatment, Cognitive-Behavioral (ICD-10-PCS; principal; 2020-02-22)
DX: F10.20 Alcohol dependence, uncomplicated (principal); F14.20 Cocaine dependence, uncomplicated; F11.20 Opioid dependence, uncomplicated; F17.210 Nicotine dependence, cigarettes, uncomplicated; F25.9 Schizoaffective disorder, unspecified; F31.9 Bipolar disorder, unspecified; F19.24 Other psychoactive substance dependence with psychoactive substance-induced mood disorder; Z21 Asymptomatic human immunodeficiency virus [HIV] infection status; I10 Essential (primary) hypertension; J44.9 Chronic obstructive pulmonary disease, unspecified; B35.3 Tinea pedis; R73.03 Prediabetes; Z56.0 Unemployment, unspecified; Z59.0 Homelessness; Z91.19 Patient's noncompliance with other medical treatment and regimen
CPT/HCPCS: 81003; 81025; 82962; 90670; U0003